=== PATIENT | female | born 1955 | race Caucasian/White ===

== ENCOUNTER → 2016-09-05 | Outpatient (CLI) | payer MEDICARE, OTHER ==
[~2016-09-05] MED LIST: BUDE10.2 IH; CELE-63 PO; CHLO25TA22 PO; DESV50TA PO; DIAZ5TAB3 PO; DOXE50CA3 PO; ESTR1TAB15 PO; LAMO100T PO; LEVO112T55 PO; METO100T2 PO; MONT10TA24 PO; PRD10T; RISP1TAB3 PO; RIVA20TA PO; RT-ALBUINH IH; TIOT4MIS2 INH
--- NOTE | 2016-09-05 17:14 | Diagnostic Imaging Report ---
PROCEDURE: US right lower extremity venous. TECHNIQUE: Multiple real-time grayscale images were obtained over the right lower extremity in various projections. Additional duplex Doppler and color Doppler images were also obtained. INDICATION: Right lower extremity edema and pain. Evaluation of the thigh is limited, however, there is normal venous flow seen within common femoral and proximal superficial femoral vein. While flow is not definitely documented in the superficial femoral vein, there is no evidence of filling defect. There is normal compressibility. The distal superficial femoral vein and popliteal veins demonstrate spontaneous flow. IMPRESSION: No evidence of deep venous thrombosis although flow in the mid superficial femoral vein cannot be confirmed with color Doppler. Otherwise normal compressibility. Dictated by: Dictated on workstation # [id number]
== END ==
LOC: RAD 16:04
PROVIDERS: ATTEND Internal Medicine Hematology & Oncology
DX: I26.99 Other pulmonary embolism without acute cor pulmonale (principal); R60.9 Edema, unspecified

== ENCOUNTER 2016-10-18 12:38 | Outpatient (RCR) | payer MEDICARE, OTHER ==
[2016-07-28 12:16] LABS: BASOPHILS % (AUTO) 0 % (0-10); EOSINOPHILS # (AUTO) 0.3 10^3/uL (0.0-0.3); EOSINOPHILS % (AUTO) 4 % (0-10); LYMPHOCYTES % (AUTO) 28 % (12-44); MEAN CORPUSCULAR HEMOGLOBIN 29 PG (25-34); MEAN CORPUSCULAR HGB CONC 32 G/DL (32-36); MEAN CORPUSCULAR VOLUME 90 FL (80-99); MONOCYTES # (AUTO) 0.6 X 10^3 (0.0-1.0); MONOCYTES % (AUTO) 9 % (0-12); NEUTROPHILS # (AUTO) 4.1 X 10^3 (1.8-7.8); NEUTROPHILS % (AUTO) 58 % (42-75); PLATELET COUNT 258 10^3/uL (130-400); RED BLOOD COUNT 4.58 10^6/uL (4.35-5.85); RED CELL DISTRIBUTION WIDTH 12.8 % (10.0-14.5); WHITE BLOOD COUNT 7.1 10^3/uL (4.3-11.0)
[2016-07-28 12:34] LABS: PEP REPORT SEE PATH REPORT
[2016-07-28 12:57] LABS: ALANINE AMINOTRANSFERASE 14 U/L (0-55); ALBUMIN 3.9 G/DL (3.2-4.5); ANION GAP 11 MMOL/L (5-14); ASPARTATE AMINO TRANSFERASE 26 U/L (5-34); BILIRUBIN,TOTAL 0.4 MG/DL (0.1-1.0); BLOOD UREA NITROGEN 9 MG/DL (7-18); BUN/CREATININE RATIO 12; CALCIUM 9.3 MG/DL (8.5-10.1); CARBON DIOXIDE 29 MMOL/L (21-32); CHLORIDE 99 MMOL/L (98-107); CREATININE SERUM 0.78 MG/DL (0.60-1.30); GFR ESTIMATED > 60; GLUCOSE 119 MG/DL (70-105); LACTATE DEHYDROGENASE 183 U/L (125-220); POTASSIUM 3.4 MMOL/L (3.6-5.0); SODIUM 139 MMOL/L (135-145); TOTAL PROTEIN 7.7 G/DL (6.4-8.2)
[2016-07-29 02:48] LABS: LIGHT CHAIN KAPPA SERUM QUANT 33.83 mg/L (3.30-19.40)
[2016-07-29 06:52] LABS: FERRITIN 42 ng/mL (15-150)
[2016-08-02 08:02] LABS: CLIN PATHOLOGY REPORT FOOTNOTE; SERUM PROTEIN ELEC DETAIL L-16-0015263
[2016-10-04 12:01] LABS: BASOPHILS % (AUTO) 1 % (0-10); EOSINOPHILS # (AUTO) 0.3 10^3/uL (0.0-0.3); EOSINOPHILS % (AUTO) 4 % (0-10); LYMPHOCYTES # (AUTO) 2.4 X 10^3 (1.0-4.0); LYMPHOCYTES % (AUTO) 31 % (12-44); MEAN CORPUSCULAR HEMOGLOBIN 28 PG (25-34); MEAN CORPUSCULAR HGB CONC 32 G/DL (32-36); MEAN CORPUSCULAR VOLUME 87 FL (80-99); MEAN PLATELET VOLUME 10.2 FL (7.4-10.4); MONOCYTES # (AUTO) 0.8 X 10^3 (0.0-1.0); MONOCYTES % (AUTO) 10 % (0-12); NEUTROPHILS # (AUTO) 4.4 X 10^3 (1.8-7.8); NEUTROPHILS % (AUTO) 56 % (42-75); PLATELET COUNT 268 10^3/uL (130-400); RED BLOOD COUNT 4.84 10^6/uL (4.35-5.85); RED CELL DISTRIBUTION WIDTH 14.5 % (10.0-14.5); WHITE BLOOD COUNT 7.9 10^3/uL (4.3-11.0)
[2016-10-04 12:30] LABS: ALANINE AMINOTRANSFERASE 16 U/L (0-55); ANION GAP 6 MMOL/L (5-14); ASPARTATE AMINO TRANSFERASE 20 U/L (5-34); BILIRUBIN,TOTAL 0.5 MG/DL (0.1-1.0); BLOOD UREA NITROGEN 13 MG/DL (7-18); BUN/CREATININE RATIO 15; CALCIUM 9.6 MG/DL (8.5-10.1); CARBON DIOXIDE 32 MMOL/L (21-32); CHLORIDE 99 MMOL/L (98-107); CREATININE SERUM 0.85 MG/DL (0.60-1.30); GFR ESTIMATED > 60; GLUCOSE 85 MG/DL (70-105); SODIUM 137 MMOL/L (135-145); TOTAL PROTEIN 7.5 G/DL (6.4-8.2)
[~2016-10-18 12:38] MED LIST changes: +FERRIC CARBOXYMALTOSE (CANCER) 750 MG in NS (IVPB) CANCER CENTER 250 ML IV SCH
== END 2016-10-26 | disposition home or self-care (01) ==
LOC: ONC 12:38
PROVIDERS: ATTEND Internal Medicine Hematology & Oncology
DX: D50.9 Iron deficiency anemia, unspecified (principal); I26.99 Other pulmonary embolism without acute cor pulmonale; I82.591 Chronic embolism and thrombosis of other specified deep vein of right lower extremity; E03.9 Hypothyroidism, unspecified; J45.909 Unspecified asthma, uncomplicated; I10 Essential (primary) hypertension; G47.33 Obstructive sleep apnea (adult) (pediatric); E66.01 Morbid (severe) obesity due to excess calories; Z68.42 Body mass index [BMI] 45.0-49.9, adult; Z79.01 Long term (current) use of anticoagulants
CPT/HCPCS: 36415; 80053; 82728; 83615; 83883; 84155; 84165; 85025; 96365; 99213

== ENCOUNTER 2017-01-11 12:31 | Outpatient (RCR) | payer MEDICARE, OTHER ==
[2016-11-08 13:21] LABS: BASOPHILS % (AUTO) 0 % (0-10); EOSINOPHILS # (AUTO) 0.2 10^3/uL (0.0-0.3); EOSINOPHILS % (AUTO) 2 % (0-10); LYMPHOCYTES # (AUTO) 2.3 X 10^3 (1.0-4.0); LYMPHOCYTES % (AUTO) 25 % (12-44); MEAN CORPUSCULAR HEMOGLOBIN 29 PG (25-34); MEAN CORPUSCULAR HGB CONC 32 G/DL (32-36); MEAN CORPUSCULAR VOLUME 90 FL (80-99); MEAN PLATELET VOLUME 10.7 FL (7.4-10.4); MONOCYTES # (AUTO) 0.9 X 10^3 (0.0-1.0); MONOCYTES % (AUTO) 9 % (0-12); NEUTROPHILS # (AUTO) 5.8 X 10^3 (1.8-7.8); NEUTROPHILS % (AUTO) 63 % (42-75); PLATELET COUNT 224 10^3/uL (130-400); RED BLOOD COUNT 5.01 10^6/uL (4.35-5.85); RED CELL DISTRIBUTION WIDTH 15.2 % (10.0-14.5); WHITE BLOOD COUNT 9.3 10^3/uL (4.3-11.0)
[2017-01-04 11:23] LABS: BASOPHILS % (AUTO) 0 % (0-10); EOSINOPHILS # (AUTO) 0.3 10^3/uL (0.0-0.3); EOSINOPHILS % (AUTO) 3 % (0-10); LYMPHOCYTES # (AUTO) 2.2 X 10^3 (1.0-4.0); LYMPHOCYTES % (AUTO) 26 % (12-44); MEAN CORPUSCULAR HEMOGLOBIN 30 PG (25-34); MEAN CORPUSCULAR HGB CONC 32 G/DL (32-36); MEAN CORPUSCULAR VOLUME 93 FL (80-99); MEAN PLATELET VOLUME 11.4 FL (7.4-10.4); MONOCYTES # (AUTO) 0.7 X 10^3 (0.0-1.0); MONOCYTES % (AUTO) 8 % (0-12); NEUTROPHILS # (AUTO) 5.3 X 10^3 (1.8-7.8); NEUTROPHILS % (AUTO) 62 % (42-75); PLATELET COUNT 218 10^3/uL (130-400); RED CELL DISTRIBUTION WIDTH 13.4 % (10.0-14.5); WHITE BLOOD COUNT 8.5 10^3/uL (4.3-11.0)
[2017-01-04 11:43] LABS: ALANINE AMINOTRANSFERASE 17 U/L (0-55); ANION GAP 7 MMOL/L (5-14); ASPARTATE AMINO TRANSFERASE 21 U/L (5-34); BILIRUBIN,TOTAL 0.6 MG/DL (0.1-1.0); BLOOD UREA NITROGEN 13 MG/DL (7-18); BUN/CREATININE RATIO 15; CALCIUM 9.7 MG/DL (8.5-10.1); CARBON DIOXIDE 31 MMOL/L (21-32); CHLORIDE 101 MMOL/L (98-107); CREATININE SERUM 0.85 MG/DL (0.60-1.30); GFR ESTIMATED > 60; GLUCOSE 97 MG/DL (70-105); POTASSIUM 4.1 MMOL/L (3.6-5.0); SODIUM 139 MMOL/L (135-145); TOTAL PROTEIN 7.3 G/DL (6.4-8.2)
[~2017-01-11 12:31] MED LIST changes: -FERRIC CARBOXYMALTOSE (CANCER) 750 MG in NS (IVPB) CANCER CENTER 250 ML IV SCH
== END 2017-02-06 | disposition home or self-care (01) ==
LOC: ONC 12:31
PROVIDERS: ATTEND Internal Medicine Hematology & Oncology
DX: D50.9 Iron deficiency anemia, unspecified (principal); I26.99 Other pulmonary embolism without acute cor pulmonale; I82.591 Chronic embolism and thrombosis of other specified deep vein of right lower extremity; E03.9 Hypothyroidism, unspecified; J45.909 Unspecified asthma, uncomplicated; I10 Essential (primary) hypertension; G47.33 Obstructive sleep apnea (adult) (pediatric); E66.01 Morbid (severe) obesity due to excess calories; Z68.42 Body mass index [BMI] 45.0-49.9, adult; Z79.01 Long term (current) use of anticoagulants
CPT/HCPCS: 36415; 80053; 82728; 85025; 99213

== ENCOUNTER → 2017-02-20 | Outpatient (CLI) | payer MEDICARE, OTHER ==
[~2017-02-20] MED LIST changes: +CATHETER FLUSH 10 ML SYR IV PRN; +IOHEXOL 350 MG/ML 150 ML (OMNIPAQUE 350) VIAL IV ONE; +NS 100 ML (IVPB) BAG IV ONE
--- NOTE | 2017-02-20 17:18 | Diagnostic Imaging Report ---
Technique: Grayscale, pulsed and color Doppler imaging of the bilateral lower extremity. INDICATION: Shortness of breath, lower extremity pain. COMPARISON: Right lower extremity Doppler from 09/05/2016. Findings: The visualized aspects of the bilateral common femoral, femoral and popliteal veins are patent without evidence of DVT. The mid right superficial femoral vein was poorly visualized due to patient body habitus. Visualized proximal aspects of the greater saphenous, deep femoral, posterior tibial and peroneal veins are also patent. All of the evaluated deep venous structures demonstrate normal compressibility and waveform augmentation where applicable. Impression: No deep venous thrombosis (DVT) within the visualized structures. The main limitation is a small segment of the right mid superficial femoral vein was unable to be evaluated due to patient body habitus. Dictated by: Dictated on workstation # [id number]
--- NOTE | 2017-02-20 17:46 | Diagnostic Imaging Report ---
PROCEDURE: CT angiography of the chest with contrast. TECHNIQUE: Multiple contiguous axial images were obtained through the chest after uneventful bolus administration of intravenous contrast. Reconstructed CTA MIP acquisitions were also performed. INDICATION: Dyspnea. COMPARISON: Chest radiograph of 07/08/2015. CTA chest of 07/08/2015. FINDINGS: No pulmonary artery filling defects. The previously seen pulmonary artery filling defects have resolved. Mild thoracic aortic calcifications. No thoracic aortic dissection or aneurysm. Calcified granuloma in the right upper lobe. Minimal linear scarring or atelectasis in the right lung base. Lungs are otherwise clear. No endobronchial lesions. No pleural or pericardial effusion. No pneumothorax. No mediastinal, hilar, or axillary lymphadenopathy. Moderate degenerative changes in the thoracic spine. No acute osseous findings. Small esophageal hiatal hernia. Cholecystectomy. The visualized upper abdominal contents are otherwise unremarkable. IMPRESSION: 1. No pulmonary emboli. No thoracic aortic aneurysm or dissection. 2. Minimal linear scarring or atelectasis in the right lung base. Lungs are otherwise clear. Dictated by: Dictated on workstation # [id number]
== END ==
LOC: RAD 15:59
PROVIDERS: ATTEND Nurse Practitioner Family
DX: R06.00 Dyspnea, unspecified (principal); R60.0 Localized edema
CPT/HCPCS: 71275; 93970

== ENCOUNTER → 2017-03-07 | Outpatient (CLI) | payer MEDICARE, OTHER ==
[~2017-03-07] MED LIST changes: -CATHETER FLUSH 10 ML SYR IV PRN; -IOHEXOL 350 MG/ML 150 ML (OMNIPAQUE 350) VIAL IV ONE; -NS 100 ML (IVPB) BAG IV ONE
== END ==
LOC: CARD 09:37
PROVIDERS: ATTEND Internal Medicine Cardiovascular Disease
DX: J45.909 Unspecified asthma, uncomplicated (principal); I82.409 Acute embolism and thrombosis of unspecified deep veins of unspecified lower extremity; R60.9 Edema, unspecified; G47.34 Idiopathic sleep related nonobstructive alveolar hypoventilation; G47.33 Obstructive sleep apnea (adult) (pediatric)
CPT/HCPCS: 93306

== ENCOUNTER → 2017-03-10 | Outpatient (CLI) | payer MEDICARE, OTHER ==
[~2017-03-10] MED LIST changes: +RT-ALBUTEROL SULF 2.5 MG/3 ML PRE-MIX VIAL IH ONE
== END ==
LOC: RT 14:42
PROVIDERS: ATTEND Internal Medicine Critical Care Medicine
DX: G47.33 Obstructive sleep apnea (adult) (pediatric) (principal); E66.01 Morbid (severe) obesity due to excess calories; R60.9 Edema, unspecified; J45.909 Unspecified asthma, uncomplicated
CPT/HCPCS: 94060; 94640; 94726; 94729

== ENCOUNTER 2017-04-12 10:53 | Outpatient (RCR) | payer MEDICARE, OTHER ==
[~2017-04-12 10:53] MED LIST changes: -RT-ALBUTEROL SULF 2.5 MG/3 ML PRE-MIX VIAL IH ONE
[2017-04-12 11:09] LABS: BASOPHILS # (AUTO) 0.1 10^3/uL (0.0-0.1); BASOPHILS % (AUTO) 1 % (0-10); EOSINOPHILS # (AUTO) 0.2 10^3/uL (0.0-0.3); EOSINOPHILS % (AUTO) 2 % (0-10); LYMPHOCYTES # (AUTO) 2.9 X 10^3 (1.0-4.0); LYMPHOCYTES % (AUTO) 33 % (12-44); MEAN CORPUSCULAR HEMOGLOBIN 30 PG (25-34); MEAN CORPUSCULAR HGB CONC 33 G/DL (32-36); MEAN CORPUSCULAR VOLUME 91 FL (80-99); MEAN PLATELET VOLUME 11.4 FL (7.4-10.4); MONOCYTES # (AUTO) 0.7 X 10^3 (0.0-1.0); MONOCYTES % (AUTO) 8 % (0-12); NEUTROPHILS # (AUTO) 5.1 X 10^3 (1.8-7.8); NEUTROPHILS % (AUTO) 57 % (42-75); PLATELET COUNT 268 10^3/uL (130-400); RED BLOOD COUNT 4.85 10^6/uL (4.35-5.85); RED CELL DISTRIBUTION WIDTH 13.2 % (10.0-14.5); WHITE BLOOD COUNT 8.9 10^3/uL (4.3-11.0)
== END 2017-05-27 | disposition home or self-care (01) ==
LOC: ONC 10:53
PROVIDERS: ATTEND Internal Medicine Hematology & Oncology
DX: D50.9 Iron deficiency anemia, unspecified (principal); I26.99 Other pulmonary embolism without acute cor pulmonale; I82.591 Chronic embolism and thrombosis of other specified deep vein of right lower extremity; E03.9 Hypothyroidism, unspecified; J45.909 Unspecified asthma, uncomplicated; I10 Essential (primary) hypertension; G47.33 Obstructive sleep apnea (adult) (pediatric); E66.01 Morbid (severe) obesity due to excess calories; Z68.42 Body mass index [BMI] 45.0-49.9, adult; Z79.01 Long term (current) use of anticoagulants
CPT/HCPCS: 36415; 82565; 82728; 84520; 85025

== ENCOUNTER → 2017-04-24 | Outpatient (CLI) | payer MEDICARE, OTHER ==
[~2017-04-24] VITALS: Ht 157.5 cm; Wt 111.6 kg
[~2017-04-24] MED LIST changes: +CATHETER FLUSH 10 ML SYR IV PRN; +REGADENOSON 0.4 MG/5 ML SYR (LEXISCAN) IV ONE
[2017-04-24 09:38] VITALS: BP 120/72
[2017-04-24 09:40] VITALS: BP 112/87
--- NOTE | 2017-04-25 09:45 | STRESS TEST ---
DATE OF SERVICE: 04/24/2017 PROCEDURE: Lexiscan Myoview Stress Test. Baseline heart rate is 53, baseline blood pressure 139/83, baseline EKG is sinus rhythm with no ischemic changes. IN SUMMARY: The patient received 10.0 mCi of technetium-99 Myoview and the resting images were obtained. Then, the patient received 0.4 mg of Lexiscan followed by 31.8 mCi of technetium-99 Myoview. Throughout the test, there were no EKG changes. The resting and stressed images were reviewed and compared in the short access, horizontal long axis, and vertical long axis views. Review of the images showed good radiotracer uptake with diaphragmatic attenuation, no significant ischemia or infarction. SSS is 3, SDS 3, TID value 1.05. On the gated images, the left ventricle appeared to be normal size with normal contractility. Calculated ejection fraction 58%. CONCLUSION: 1. The patient tolerated Lexiscan well. 2. Good radiotracer uptake with no significant ischemia or infarction on SPECT images. 3. Normal left ventricular size with normal contractility, calculated ejection fraction 58%. Job ID: [id number] DocumentID: [id number] Dictated Date: 04/24/2017 18:40:13 Search Engine Opt[employer] Manager Date: 04/25/2017 06:40:21 Dictated By: ELLI CARBONE MD
== END ==
LOC: CARD 08:04
PROVIDERS: ATTEND Internal Medicine Cardiovascular Disease
DX: J45.909 Unspecified asthma, uncomplicated (principal); I82.409 Acute embolism and thrombosis of unspecified deep veins of unspecified lower extremity; R60.9 Edema, unspecified; G47.34 Idiopathic sleep related nonobstructive alveolar hypoventilation; G47.33 Obstructive sleep apnea (adult) (pediatric)
CPT/HCPCS: 78452; 93017

== ENCOUNTER 2017-07-13 12:34 | Outpatient (RCR) | payer MEDICARE, OTHER ==
[~2017-07-13 12:34] MED LIST changes: -CATHETER FLUSH 10 ML SYR IV PRN; +METO100T12 PO; -METO100T2 PO; -REGADENOSON 0.4 MG/5 ML SYR (LEXISCAN) IV ONE
[2017-07-13 13:00] LABS: BASOPHILS % (AUTO) 0 % (0-10); EOSINOPHILS # (AUTO) 0.4 10^3/uL (0.0-0.3); EOSINOPHILS % (AUTO) 5 % (0-10); HEMATOCRIT 43 % (35-52); HEMOGLOBIN 14.4 G/DL (11.5-16.0); LYMPHOCYTES # (AUTO) 2.2 X 10^3 (1.0-4.0); LYMPHOCYTES % (AUTO) 29 % (12-44); MEAN CORPUSCULAR HEMOGLOBIN 31 PG (25-34); MEAN CORPUSCULAR HGB CONC 33 G/DL (32-36); MEAN CORPUSCULAR VOLUME 93 FL (80-99); MEAN PLATELET VOLUME 11.7 FL (7.4-10.4); MONOCYTES # (AUTO) 0.6 X 10^3 (0.0-1.0); MONOCYTES % (AUTO) 7 % (0-12); NEUTROPHILS # (AUTO) 4.5 X 10^3 (1.8-7.8); NEUTROPHILS % (AUTO) 59 % (42-75); PLATELET COUNT 206 10^3/uL (130-400); RED BLOOD COUNT 4.67 10^6/uL (4.35-5.85); WHITE BLOOD COUNT 7.6 10^3/uL (4.3-11.0)
[2017-07-13 13:17] LABS: ALANINE AMINOTRANSFERASE 16 U/L (0-55); ALBUMIN 3.9 GM/DL (3.2-4.5); ALKALINE PHOSPHATASE 54 U/L (40-136); BILIRUBIN,TOTAL 0.5 MG/DL (0.1-1.0); BUN/CREATININE RATIO 18; CALCIUM 9.3 MG/DL (8.5-10.1); CARBON DIOXIDE 28 MMOL/L (21-32); CHLORIDE 102 MMOL/L (98-107); CREATININE SERUM 0.74 MG/DL (0.60-1.30); GFR ESTIMATED > 60; GLUCOSE 117 MG/DL (70-105); POTASSIUM 3.3 MMOL/L (3.6-5.0); SODIUM 140 MMOL/L (135-145); TOTAL PROTEIN 7.4 GM/DL (6.4-8.2)
== END 2017-10-11 | disposition home or self-care (01) ==
LOC: ONC 12:34
PROVIDERS: ATTEND Internal Medicine Hematology & Oncology
DX: D50.9 Iron deficiency anemia, unspecified (principal); I26.99 Other pulmonary embolism without acute cor pulmonale; I82.591 Chronic embolism and thrombosis of other specified deep vein of right lower extremity; E03.9 Hypothyroidism, unspecified; J45.909 Unspecified asthma, uncomplicated; I10 Essential (primary) hypertension; G47.33 Obstructive sleep apnea (adult) (pediatric); E66.01 Morbid (severe) obesity due to excess calories; Z68.42 Body mass index [BMI] 45.0-49.9, adult; Z79.01 Long term (current) use of anticoagulants
CPT/HCPCS: 36415; 80053; 82728; 85025; 99213

== ENCOUNTER → 2017-12-04 | Outpatient (CLI) | payer MEDICARE, OTHER ==
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
== END ==
LOC: RAD 09:29
PROVIDERS: ATTEND Family Medicine
DX: M48.02 Spinal stenosis, cervical region (principal); M48.04 Spinal stenosis, thoracic region; M51.34 Other intervertebral disc degeneration, thoracic region; M47.812 Spondylosis without myelopathy or radiculopathy, cervical region; M47.814 Spondylosis without myelopathy or radiculopathy, thoracic region; V89.2XXD Person injured in unspecified motor-vehicle accident, traffic, subsequent encounter
CPT/HCPCS: 72141; 72146

== ENCOUNTER → 2017-12-05 | Outpatient (CLI) | payer MEDICARE, OTHER ==
--- NOTE | 2017-12-05 12:47 | Diagnostic Imaging Report ---
PROCEDURE: MRI lumbar spine. TECHNIQUE: Multiplanar, multisequence MRI of the lumbar spine was performed without contrast. INDICATION: Low back pain radiating to right lower extremity. COMPARISON: None. FINDINGS: There are five lumbar type vertebral bodies presumed for the purposes of this report. Normal alignment. Vertebral body heights are preserved. Modic type II degenerative endplate changes at T10-T11. Bone marrow signal is otherwise unremarkable. No abnormal signal in the conus which terminates at T12. Normal morphology of the cauda equina. There are small broad-based disc bulges at L1-L2 and L2-L3. There is no substantial spinal canal or neural foraminal narrowing in the lumbar spine. [id number] facet arthropathy at L4-L5 and L5-S1. There is increased fluid within the facet joints at L5-S1. This contributes to mild bilateral neural foraminal narrowing at L5-S1. No other substantial neural foraminal narrowing in the lumbar spine. The visualized paravertebral soft tissues are unremarkable. IMPRESSION: 1. [id number] degenerative facet arthropathy at L4-L5 and L5-S1. There is increased fluid within the facet joints bilaterally at L5-S1. This may be a local pain generator. 2. Mild scattered spondylotic changes in the lumbar spine result in no substantial neural impingement. No acute osseous findings. Dictated by: Dictated on workstation # [id number]
== END ==
LOC: RAD 10:20
PROVIDERS: ATTEND Family Medicine
DX: M51.36 Other intervertebral disc degeneration, lumbar region (principal); M89.38 Hypertrophy of bone, other site; M46.87 Other specified inflammatory spondylopathies, lumbosacral region
CPT/HCPCS: 72148

== ENCOUNTER 2017-12-11 14:12 | Emergency (ER) | payer MEDICARE ==
[~2017-12-11] VITALS: Ht 157.5 cm; Wt 112.0 kg
[2017-12-11 14:33] LABS: BILIRUBIN,URINE NEGATIVE (NEGATIVE); CLARITY,URINE CLEAR; COLOR,URINE YELLOW; GLUCOSE, URINE (UA) NEGATIVE (NEGATIVE); KETONES,URINE 1+ (NEGATIVE); LEUKOCYTE ESTERASE ,URINE 1+ (NEGATIVE); NITRITE,URINE NEGATIVE (NEGATIVE); PH,URINE 7 (5-9); PROTEIN,URINE 1+ (NEGATIVE); UROBILINOGEN,URINE 4 MG/DL (NORMAL)
--- NOTE | 2017-12-11 14:36 | ED GU-Female ---
General Chief Complaint: Abdominal/GI Problems Stated Complaint: ABD PAIN,SIDE PAIN Nursing Triage Note: ARRIVED VIA AMB TO ROOM 06. COMPLAINS OF SEVERE LEFT FLANK PAIN STARTING AROUND 1245. STATES SHE WAS SEEN AT [facility] YESTERDAY AND HAD A PE RULED OUT. Nursing Sepsis Screen: No Definite Risk Source: patient Exam Limitations: no limitations History of Present Illness Date Seen by Provider: Dec 11, 2017 Time Seen by Provider: 14:36 Initial Comments 62 yo female patient presents to the ED with c/o severe left flank pain beginning at 1245 today. Patient was seen at [facility] last night and worked up for a PE. Patient states she had an MRI of the Cervical and thoracic spine on 12/04/17 and an MRI of the lumbar spine on 12/05/17. She was on her way to her behavioral health appointment today and decided to come to the ED to be evaluated for the left flank pain. Timing/Duration: constant, other (1245 today) Severity/Quality: aching, sharp Location: left flank Radiation: none Activities at Onset: none Prior Genitourinary Problems: similar symptoms Modifying Factors: Worsens With Movement, Worsens With Palpation, Worsens With Urinating Allergies and Home Medications Allergies Coded Allergies: acetaminophen (Verified Allergy, Unknown, 07/08/15) erythromycin base (Verified Allergy, Unknown, 07/08/15) hydrocodone (Verified Allergy, Unknown, 07/08/15) Home Medications Albuterol Sulfate 8.5 Gm Hfa.aer.ad, 2 PUFF IH Q4H PRN for SHORTNESS OF BREATH, (Reported) Albuterol Sulfate 6.7 Gm Hfa.aer.ad, 2 PUFF IH Q4H PRN for SHORTNESS OF BREATH Prescribed by: AMADEO MIXON on 12/11/171943 Amoxicillin 500 Mg Capsule, 500 MG PO TID Prescribed by: AMADEO MIXON on 12/11/171943 Budesonide/Formoterol Fumarate 10.2 Gm Hfa.aer.ad, 2 PUFF IH DAILY, (Reported) Chlorthalidone 25 Mg Tablet, 25 MG PO DAILY, (Reported) Ciprofloxacin HCl 500 Mg Tablet, 500 MG PO BID Prescribed by: AMADEO MIXON on 12/11/171943 Desvenlafaxine Succinate 50 Mg Tab.er.24h, 50 MG PO DAILY, (Reported) Diazepam 5 Mg Tablet, 5 MG PO TID PRN for ANXIETY, (Reported) Doxepin HCl 50 Mg Capsule, 50 MG PO HS PRN for INSOMNIA, (Reported) Lamotrigine 100 Mg Tablet, 100 MG PO DAILY, (Reported) Levothyroxine Sodium 112 Mcg Tablet, 112 MCG PO DAILY, (Reported) Metoprolol Tartrate 100 Mg Tablet, 100 MG PO BID, (Reported) Montelukast Sodium 10 Mg Tablet, 10 MG PO EVERY EVENING, (Reported) Ondansetron 8 Mg Tab.rapdis, 8 MG PO Q6H PRN for NAUSEA/VOMITING-1ST LINE Prescribed by: AMADEO MIXON on 12/11/171943 Phenazopyridine HCl 200 Mg Tablet, 1 TAB PO Q8H PRN for SPASMS Prescribed by: AMADEO MIXON on 12/11/171943 Risperidone 1 Mg Tablet, 1 MG PO DAILY, (Reported) Rivaroxaban 20 Mg Tablet, 20 MG PO DAILY Prescribed by: MADALYN ARECHIGA on 07/13/151044 Tiotropium [place] 4 Gm Mist.inhal, 2 PUFF INH DAILY, (Reported) Tramadol HCl 50 Mg Tablet, 50 MG PO Q6H PRN for pain Prescribed by: AMADEO MIXON on 12/11/171929 Patient Home Medication List Home Medication List Reviewed: Yes Review of Systems Constitutional: No chills, No fever, No malaise EENTM: no symptoms reported Respiratory: no symptoms reported Cardiovascular: no symptoms reported Gastrointestinal: see HPI; No abdominal pain, No constipation, No diarrhea, No hematemesis, No heartburn, No melena; nausea; No vomiting Genitourinary: see HPI; denies discharge; dysuria, frequency, flank pain (left flank pain.), hematuria, pain Musculoskeletal: no symptoms reported, other (chronic neck and back pain. denies worsening symptoms.) Skin: no symptoms reported Psychiatric/Neurological: No Symptoms Reported All Other Systemes Reviewed Negative Unless Noted: Yes (Negative excepted noted.) Past Yezayai-Tpefwq-Gyzjfv Hx Patient Social History Alcohol Use: Denies Use Recreational Drug Use: No Smoking Status: Never a Smoker Recent Foreign Travel: No Contact w/Someone Who Travel: No Recent Infectious Disease Expo: No Recent Hopitalizations: Yes (ER VISIT YESTERDAY. ) Immunizations Up To Date Tetanus Booster (TDap): More than 5yrs PED Vaccines UTD: Yes Date of Pneumonia Vaccine: Jul 08, 2012 Date of Influenza Vaccine: Jun 21, 2015 Past Medical History Surgeries: Yes (DENTAL SURGERY) Respiratory: Yes (COPD, PE) Asthma, Pulmonary Embolism, Sleep Apnea Currently Using BIPAP: No Cardiac: Yes (HYPOKALEMIA) High Cholesterol, Hypertension Neurological: No Reproductive Disorders: No Genitourinary: Yes (h/o hematuria) Gastrointestinal: Yes Irritable Bowel Musculoskeletal: Yes (OSTEOARTHRISTIS) Arthritis, Rheumatoid Arthritis Endocrine: Yes Hypothyroidsim Cancer: No Psychosocial: Yes Bipolar Integumentary: No Blood Disorders: No Adverse Reaction/Blood Tranf: No Family Medical History Reviewed and Corrections made Cardiovascular disease 19 FATHER G8 BROTHER FH: atrial fibrillation 19 MOTHER No Pertinent Family Hx Physical Exam Vital Signs Vital Signs - First Documented 12/11/17 12/11/17 14:15 19:00 Temp 96.7 Pulse 65 Resp 18 B/P (MAP) 138/91 (107) Pulse Ox 96 O2 Delivery Room Air Capillary Refill : Less Than 3 Seconds General Appearance: WD/WN, no apparent distress, obese HEENT: PERRL/EOMI, pharynx normal Neck: supple, normal inspection Cardiovascular: normal peripheral pulses, regular rate, rhythm, no murmur Respiratory: lungs clear, normal breath sounds, no respiratory distress, no accessory muscle use Gastrointestinal: normal bowel sounds, no organomegaly, no pulsatile mass; No distended; guarding (RUQ and left flank guarding.); No rebound; tenderness (RUQ and Left flank tenderness); No hernia, No mass Back: normal inspection, no vertebral tenderness, CVA tenderness (R), CVA tenderness (L) Extremities: normal capillary refill Neurologic/Psychiatric: alert, normal mood/affect, oriented x 3 Skin: normal color, warm/dry Progress/Results/Core Measures Suspected Sepsis Recent Fever Within 48 Hours: No Infection Criteria Present: Suspected New Infection New/Unexplained Altered Menta: No Sepsis Screen: No Definite Risk SIRS Temperature:96.7 Pulse: 65 Respiratory Rate: 18 Laboratory Tests 12/11/17 15:25: White Blood Count 7.1 Blood Pressure 138 /91 Mean: 107 Laboratory Tests 12/11/17 15:25: Creatinine 0.76, Platelet Count 280, Total Bilirubin 0.4 Results/Orders Lab Results Laboratory Tests Test 12/11/17 14:25 12/11/17 15:25 Range/Units Urine Color YELLOW Urine Clarity CLEAR Urine pH 7 5-9 Urine Specific [place] 1.015 L 1.016-1.022 Urine Protein 1+ H NEGATIVE Urine Glucose (UA) NEGATIVE NEGATIVE Urine Ketones 1+ H NEGATIVE Urine Nitrite NEGATIVE NEGATIVE Urine Bilirubin NEGATIVE NEGATIVE Urine Urobilinogen 4 H NORMAL MG/DL Urine Leukocyte Esterase 1+ H NEGATIVE Urine RBC (Auto) NEGATIVE NEGATIVE Urine RBC NONE /HPF Urine WBC 5-10 H /HPF Urine Squamous Epithelial Cells 5-10 /HPF Urine Crystals NONE /LPF Urine Bacteria MODERATE H /HPF Urine Casts NONE /LPF Urine Mucus SMALL H /LPF Urine Culture Indicated YES White Blood Count 7.1 4.3-11.0 10^3/uL Red Blood Count 4.24 L 4.35-5.85 10^6/uL Hemoglobin 12.4 11.5-16.0 G/DL Hematocrit 39 35-52 % Mean Corpuscular Volume 91 80-99 FL Mean Corpuscular Hemoglobin 29 25-34 PG Mean Corpuscular Hemoglobin Concent 32 32-36 G/DL Red Cell Distribution Width 13.3 10.0-14.5 % Platelet Count 280 130-400 10^3/uL Mean Platelet Volume 10.7 H 7.4-10.4 FL Neutrophils (%) (Auto) 53 42-75 % Lymphocytes (%) (Auto) 32 12-44 % Monocytes (%) (Auto) 8 0-12 % Eosinophils (%) (Auto) 6 0-10 % Basophils (%) (Auto) 1 0-10 % Neutrophils # (Auto) 3.7 1.8-7.8 X 10^3 Lymphocytes # (Auto) 2.3 1.0-4.0 X 10^3 Monocytes # (Auto) 0.6 0.0-1.0 X 10^3 Eosinophils # (Auto) 0.4 H 0.0-0.3 10^3/uL Basophils # (Auto) 0.1 0.0-0.1 10^3/uL Sodium Level 141 135-145 MMOL/L Potassium Level 3.7 3.6-5.0 MMOL/L Chloride Level 103 98-107 MMOL/L Carbon Dioxide Level 30 21-32 MMOL/L Anion Gap 8 5-14 MMOL/L Blood Urea Nitrogen 15 7-18 MG/DL Creatinine 0.76 0.60-1.30 MG/DL Estimat Glomerular Filtration Rate > 60 BUN/Creatinine Ratio 20 Glucose Level 93 70-105 MG/DL Calcium Level 9.4 8.5-10.1 MG/DL Total Bilirubin 0.4 0.1-1.0 MG/DL Aspartate Amino Transf (AST/SGOT) 22 5-34 U/L Alanine Aminotransferase (ALT/SGPT) 17 0-55 U/L Alkaline Phosphatase 63 40-136 U/L C-Reactive Protein High Sensitivity 1.53 H 0.00-0.50 MG/DL Total Protein 7.3 6.4-8.2 GM/DL Albumin 3.8 3.2-4.5 GM/DL Lipase 76 8-78 U/L TSH [place] Testing 3.94 0.35-4.94 UIU/ML My Orders Orders - AMADEO MIXON Cbc With Automated Diff (12/11/17 14:53) Comprehensive Metabolic Panel (12/11/17 14:53) Hs C Reactive Protein (12/11/17 14:53) Lipase (12/11/17 14:53) Thyroid Analyzer (12/11/17 14:53) Saline Lock/Iv-Start (12/11/17 14:53) Ondansetron Injection (Zofran Injectio (12/11/17 15:00) Ketorolac Injection (Toradol Injection) (12/11/17 14:53) Ns Iv 1000 Ml (Sodium Chloride 0.9%) (12/11/17 14:53) Ceftriaxone Injection (Rocephin Injectio (12/11/17 15:00) Ct Abd/Pelvis Wo(Kidney Stone) (12/11/17 14:54) Ct Angio Chest W (12/11/17 17:17) Morphine Injection (Morphine Injection (12/11/17 17:24) Iohexol Injection (Omnipaque 350 Mg/Ml 1 (12/11/17 17:30) Ns (Ivpb) (Sodium Chloride 0.9% Ivpb Bag (12/11/17 17:30) Morphine Injection (Morphine Injection (12/11/17 18:56) Medications Given in ED Current Medications Medications Dose Ordered Sig/Abeba Route Start Time Stop Time Status Last Admin Dose Admin Ceftriaxone Sodium 1000 mg/ Sodium Chloride 100 ml @ 200 mls/hr ONCE ONCE IV 12/11/17 15:00 12/11/17 15:29 DC 12/11/17 15:30 200 MLS/HR Iohexol 150 ml ONCE ONCE IV 12/11/17 17:30 12/11/17 17:34 DC 12/11/17 17:51 150 ML Ondansetron HCl 4 mg ONCE ONCE IVP 12/11/17 15:00 12/11/17 15:01 DC 12/11/17 15:30 4 MG Sodium Chloride 100 ml ONCE ONCE IV 12/11/17 17:30 12/11/17 17:34 DC 12/11/17 17:51 100 ML Sodium Chloride 1,000 ml @ 0 mls/hr Q0M ONCE IV 12/11/17 14:53 12/11/17 14:55 DC 12/11/17 15:30 1,000 MLS/HR Vital Signs/I&O 12/11/17 12/11/17 12/11/17 12/11/17 14:15 19:00 19:04 19:46 Temp 96.7 97.2 96.7 97.0 Pulse 65 65 62 Resp 18 18 18 B/P (MAP) 138/91 (107) 111/61 (78) 93/60 (78) Pulse Ox 96 94 98 O2 Delivery Room Air Room Air Capillary Refill : Less Than 3 Seconds Blood Pressure Mean: 107 Diagnostic Imaging Diagonstic Imaging: CT Plain Films/CT/US/NM/MRI: abdomen, pelvis Comments PROCEDURE: CT urinary tract, rule out kidney stone. TECHNIQUE: Multiple contiguous axial images were obtained through the abdomen and pelvis without the use of intravenous contrast. INDICATION: Abdominal pain. COMPARISON: None available. FINDINGS: Evaluation of the abdominal viscera is mildly limited without contrast. Lower chest: Multifocal centrilobular nodules are present in the right lower lobe. No pericardial or pleural effusion. Peritoneum: No free intraperitoneal air or fluid. Liver and biliary system: Diffuse hypoattenuation of the liver is indicative of hepatic steatosis. No focal hepatic lesion by noncontrast imaging. Status post cholecystectomy. No biliary duct dilatation. Spleen and Pancreas: Spleen is normal. Unenhanced pancreas is grossly normal. Adrenals: Normal. tract: No renal or ureteral calculi. No obstructive uropathy. Uterus and ovaries are normal in appearance. GI tract: Small hiatus hernia. The stomach is decompressed without discrete wall thickening. No bowel obstruction. No pericolonic inflammatory changes. Appendix is not visualized and may be surgically absent. If not surgically absent, there are no changes that would indicate acute appendicitis. Vasculature and Lymph nodes: Normal caliber aorta. No abdominal or pelvic lymphadenopathy. Musculoskeletal: No concerning osseous lesion. Fat-containing umbilical hernia shows no features of fat infarction. IMPRESSION: 1. No acute inflammatory or obstructive process in the abdomen or pelvis. 2. Right lower lobe bronchiolitis is most frequently seen with infection or aspiration. 3. No urinary tract calculi. 4. Mild diffuse hepatic steatosis. 5. Small fat-containing umbilical hernia. Dictated by: Dictated on workstation # [id number] Reviewed: Reviewed by Me (radiology report reviewed by me) Diagonstic Imaging: CT Plain Films/CT/US/NM/MRI: chest Comments CT ANGIO CHEST W PROCEDURE: CT angiography of the chest with contrast. TECHNIQUE : Multiple contiguous axial images were obtained through the chest after uneventful bolus administration of intravenous contrast. Reconstructed CTA MIP acquisitions were also performed. INDICATION: Chest pain. COMPARISON: February 20, 2017 FINDINGS: Mildly enlarged left axillary lymph node is present, appearing more prominent than the prior examination. No additional pathologically enlarged lymph nodes within the chest. No aneurysmal dilatation of the thoracic aorta. Mild scattered vascular calcifications. Small hiatal hernia. The heart is mildly enlarged. No significant pericardial effusion. No pleural effusion. New predominantly reticular opacities are identified within the right lower lobe. No pneumothorax. No aortic dissection. Evaluation for pulmonary emboli is limited secondary to contrast bolus timing and respiratory motion. Within the limits of this examination, no large central or segmental pulmonary embolus is identified. Cholecystectomy. Otherwise, the visualized upper abdomen is unremarkable. Scattered osseous degenerative changes without acute osseous abnormality. IMPRESSION: 1. No definite pulmonary embolus is identified. However , evaluation for pulmonary emboli is limited secondary to contrast bolus timing and respiratory motion. 2. New reticular opacities within the right lung, likely related to infiltrate such as pneumonia. 3. Prominent axillary lymph nodes, increasing on the left. This may simply be reactive. Underlying systemic process such as granulomatous disease or even lymphoma not excluded. Additionally, breast cancer cannot be excluded. Recommend correlation with mammography if available. If patient has not had mammography within the past year, mammography would be indicated. 4. Small hiatal hernia. 5. Additional findings as above. Dictated by: Dictated on workstation # [id number] Reviewed: Reviewed by Me (radiology report reviewed by me) Departure Communication (Admissions) patient seen and evaluated. initial labs and CT abd/pelvis obtained. Records from that helped received and reviewed. No record of CT anterior chest obtained at [facility]. patient case discussed with dr. palumbo. dr. palumbo recommends CT angio chest to further evaluate for PE. all laboratory findings, diagnostic study findings and recommendations for CT angio chest discussed with the patient. patient verbalizes understanding and wishes to proceed. 1914 CT angio chest results discussed with dr. palumbo. recommends [facility] to home with f/u in her office for recheck, outpatient mammogram, and further evaluation of the enlarged lymph nodes in the axilla. diagnostic findings and recommendations by dr. palumbo discussed with the patient. patient reports feeling better with pain medications and ivf. patient to call dr. palumbo's office for appointment time. Patient to return immediately to the emergency department for worsened symptoms or any other concerns. Patient case discussed with dr. cornejo, he agrees with the plan of care. Impression Primary Impression: Urinary tract infection Qualified Codes: N30.00 - Acute cystitis without hematuria Additional Impressions: Dehydration Pneumonia Qualified Codes: J18.1 - Lobar pneumonia, unspecified organism Disposition: HOME, SELF-CARE Condition: Improved Departure-Patient Inst. Decision time for Depature: 19:24 Referrals: MULU PALUMBO MD (PCP/Family) Primary Care Physician Patient Instructions: Community-Acquired Pneumonia, Adult (DC), Urinary Tract Infection, Adult (DC) Add. Discharge Instructions: All discharge instructions reviewed with patient and/or family. Voiced understanding. Medications as instructed. Tylenol Extra Strength over-the- counter as directed for pain. Ibuprofen 800 mg by mouth every 8 hours as needed for pain. Boou-ooh-qdbznfu decongestants and antihistamines if needed for symptoms. Drink plenty of fluids. Follow-up with Dr. Palumbo this week for recheck, call for appointment time tomorrow morning. Return to the emergency department for worsened symptoms or any other concerns. Scripts Phenazopyridine HCl (Pyridium) 200 Mg Tablet 1 TAB PO Q8H PRN for SPASMS, #14 TAB 0 Refills Prov: AMADEO MIXON 12/11/17 Ondansetron (Ondansetron Odt) 8 Mg Tab.rapdis 8 MG PO Q6H PRN for NAUSEA/VOMITING-1ST LINE, #10 TAB 0 Refills Prov: AMADEO MIXON 12/11/17 Albuterol Sulfate (Proventil Hfa) 6.7 Gm Hfa.aer.ad 2 PUFF IH Q4H PRN for SHORTNESS OF BREATH, #1 EACH 0 Refills Prov: AMADEO MIXON 12/11/17 Amoxicillin (Amoxicillin) 500 Mg Capsule 500 MG PO TID, #21 CAP 0 Refills Prov: AMADEO MIXON 12/11/17 Ciprofloxacin HCl (Ciprofloxacin HCl) 500 Mg Tablet 500 MG PO BID, #14 TAB 0 Refills Prov: AMADEO MIXON 12/11/17 Tramadol HCl (Tramadol HCl) 50 Mg Tablet 50 MG PO Q6H PRN for pain, #14 TAB 0 Refills Prov: AMADEO MIXON 12/11/17 AMADEO MIXON Dec 11, 2017 14:36
[2017-12-11 14:52] LABS: BACTERIA,URINE MODERATE /HPF
[2017-12-11] MEDS ORDERED: NS IV 1000 ML 1,000 ML IV ONE (14:53)
[2017-12-11] MEDS ORDERED: KETOROLAC 30 MG/ML VIAL IVP STA (14:53)
[2017-12-11] MEDS ORDERED: cefTRIAXone INJECTION 1,000 MG in NS (IVPB) 100 ML IV ONE (15:00)
[2017-12-11] MEDS ORDERED: ONDANSETRON 4 MG/2 ML (SDV) Z0FRAN IVP ONE (15:00)
[2017-12-11 15:34] LABS: BASOPHILS # (AUTO) 0.1 10^3/uL (0.0-0.1); BASOPHILS % (AUTO) 1 % (0-10); EOSINOPHILS # (AUTO) 0.4 10^3/uL (0.0-0.3); EOSINOPHILS % (AUTO) 6 % (0-10); HEMATOCRIT 39 % (35-52); HEMOGLOBIN 12.4 G/DL (11.5-16.0); LYMPHOCYTES # (AUTO) 2.3 X 10^3 (1.0-4.0); LYMPHOCYTES % (AUTO) 32 % (12-44); MEAN CORPUSCULAR HEMOGLOBIN 29 PG (25-34); MEAN CORPUSCULAR HGB CONC 32 G/DL (32-36); MEAN CORPUSCULAR VOLUME 91 FL (80-99); MEAN PLATELET VOLUME 10.7 FL (7.4-10.4); MONOCYTES # (AUTO) 0.6 X 10^3 (0.0-1.0); MONOCYTES % (AUTO) 8 % (0-12); NEUTROPHILS # (AUTO) 3.7 X 10^3 (1.8-7.8); NEUTROPHILS % (AUTO) 53 % (42-75); PLATELET COUNT 280 10^3/uL (130-400); RED BLOOD COUNT 4.24 10^6/uL (4.35-5.85); RED CELL DISTRIBUTION WIDTH 13.3 % (10.0-14.5); WHITE BLOOD COUNT 7.1 10^3/uL (4.3-11.0)
[2017-12-11 15:58] LABS: ALANINE AMINOTRANSFERASE 17 U/L (0-55); ALBUMIN 3.8 GM/DL (3.2-4.5); ALKALINE PHOSPHATASE 63 U/L (40-136); BILIRUBIN,TOTAL 0.4 MG/DL (0.1-1.0); BUN/CREATININE RATIO 20; CALCIUM 9.4 MG/DL (8.5-10.1); CARBON DIOXIDE 30 MMOL/L (21-32); CHLORIDE 103 MMOL/L (98-107); CREATININE SERUM 0.76 MG/DL (0.60-1.30); GFR ESTIMATED > 60; GLUCOSE 93 MG/DL (70-105); LIPASE 76 U/L (8-78); POTASSIUM 3.7 MMOL/L (3.6-5.0); SODIUM 141 MMOL/L (135-145); TOTAL PROTEIN 7.3 GM/DL (6.4-8.2)
--- NOTE | 2017-12-11 16:03 | Diagnostic Imaging Report ---
PROCEDURE: CT urinary tract, rule out kidney stone. TECHNIQUE: Multiple contiguous axial images were obtained through the abdomen and pelvis without the use of intravenous contrast. INDICATION: Abdominal pain. COMPARISON: None available. FINDINGS: Evaluation of the abdominal viscera is mildly limited without contrast. Lower chest: Multifocal centrilobular nodules are present in the right lower lobe. No pericardial or pleural effusion. Peritoneum: No free intraperitoneal air or fluid. Liver and biliary system: Diffuse hypoattenuation of the liver is indicative of hepatic steatosis. No focal hepatic lesion by noncontrast imaging. Status post cholecystectomy. No biliary duct dilatation. Spleen and Pancreas: Spleen is normal. Unenhanced pancreas is grossly normal. Adrenals: Normal. tract: No renal or ureteral calculi. No obstructive uropathy. Uterus and ovaries are normal in appearance. GI tract: Small hiatus hernia. The stomach is decompressed without discrete wall thickening. No bowel obstruction. No pericolonic inflammatory changes. Appendix is not visualized and may be surgically absent. If not surgically absent, there are no changes that would indicate acute appendicitis. Vasculature and Lymph nodes: Normal caliber aorta. No abdominal or pelvic lymphadenopathy. Musculoskeletal: No concerning osseous lesion. Fat-containing umbilical hernia shows no features of fat infarction. IMPRESSION: 1. No acute inflammatory or obstructive process in the abdomen or pelvis. 2. Right lower lobe bronchiolitis is most frequently seen with infection or aspiration. 3. No urinary tract calculi. 4. Mild diffuse hepatic steatosis. 5. Small fat-containing umbilical hernia. Dictated by: Dictated on workstation # [id number]
[2017-12-11 16:18] LABS: TSH (THYROID ANALYZER) 3.94 UIU/ML (0.35-4.94)
[2017-12-11] MEDS ORDERED: morphine INJ 10 MG/ML 1ML (SYR OR VIAL) IVP STA ×2 (17:24→18:56)
[2017-12-11] MEDS ORDERED: IOHEXOL 350 MG/ML 150 ML (OMNIPAQUE 350) VIAL IV ONE (17:30)
[2017-12-11] MEDS ORDERED: NS 100 ML (IVPB) BAG IV ONE (17:30)
--- NOTE | 2017-12-11 18:49 | Diagnostic Imaging Report ---
PROCEDURE: CT angiography of the chest with contrast. TECHNIQUE: Multiple contiguous axial images were obtained through the chest after uneventful bolus administration of intravenous contrast. Reconstructed CTA MIP acquisitions were also performed. INDICATION: Chest pain. COMPARISON: February 20, 2017 FINDINGS: Mildly enlarged left axillary lymph node is present, appearing more prominent than the prior examination. No additional pathologically enlarged lymph nodes within the chest. No aneurysmal dilatation of the thoracic aorta. Mild scattered vascular calcifications. Small hiatal hernia. The heart is mildly enlarged. No significant pericardial effusion. No pleural effusion. New predominantly reticular opacities are identified within the right lower lobe. No pneumothorax. No aortic dissection. Evaluation for pulmonary emboli is limited secondary to contrast bolus timing and respiratory motion. Within the limits of this examination, no large central or segmental pulmonary embolus is identified. Cholecystectomy. Otherwise, the visualized upper abdomen is unremarkable. Scattered osseous degenerative changes without acute osseous abnormality. IMPRESSION: 1. No definite pulmonary embolus is identified. However, evaluation for pulmonary emboli is limited secondary to contrast bolus timing and respiratory motion. 2. New reticular opacities within the right lung, likely related to infiltrate such as pneumonia. 3. Prominent axillary lymph nodes, increasing on the left. This may simply be reactive. Underlying systemic process such as granulomatous disease or even lymphoma not excluded. Additionally, breast cancer cannot be excluded. Recommend correlation with mammography if available. If patient has not had mammography within the past year, mammography would be indicated. 4. Small hiatal hernia. 5. Additional findings as above. Dictated by: Dictated on workstation # [id number]
[2017-12-11 19:00] VITALS: BP 111/61
[2017-12-11] MEDS ORDERED: RT-ALBUINH IH ×2 (19:30→19:44)
[2017-12-11] MEDS ORDERED: TRAM50TA2 PO (19:30)
[2017-12-11] MEDS ORDERED: CIPR500T4 PO ×2 (19:30→19:44)
[2017-12-11] MEDS ORDERED: AMOX500C2 PO ×2 (19:30→19:44)
[2017-12-11] MEDS ORDERED: ONDA8TAB13 PO (19:44)
[2017-12-11] MEDS ORDERED: PHEN-640 PO (19:44)
[2017-12-11 19:46] VITALS: BP 93/60
== END 2017-12-11 19:46 | disposition home or self-care (01) ==
LOC: EDUNIT# 14:12 → ER 14:14
DX: N39.0 Urinary tract infection, site not specified (principal); E86.0 Dehydration; J18.9 Pneumonia, unspecified organism; E03.9 Hypothyroidism, unspecified; F31.9 Bipolar disorder, unspecified; M06.9 Rheumatoid arthritis, unspecified; E78.00 Pure hypercholesterolemia, unspecified; I10 Essential (primary) hypertension; E87.6 Hypokalemia; J44.9 Chronic obstructive pulmonary disease, unspecified; Z86.711 Personal history of pulmonary embolism; Z87.19 Personal history of other diseases of the digestive system; Z98.818 Other dental procedure status; Z88.6 Allergy status to analgesic agent; Z88.1 Allergy status to other antibiotic agents; Z88.5 Allergy status to narcotic agent
CPT/HCPCS: 36415; 71275; 74176; 80053; 81000; 83690; 84443; 85025; 86141; 87088; 96361; 96365; 96375; 96376

== ENCOUNTER → 2017-12-21 | Outpatient (CLI) | payer MEDICARE ==
[~2017-12-21] MED LIST changes: +AMOX500C2 PO; +CIPR500T4 PO; +ONDA8TAB13 PO; +PHEN-640 PO; +TRAM50TA2 PO
[2017-12-21 18:07] LABS: BASOPHILS # (AUTO) 0.1 10^3/uL (0.0-0.1); BASOPHILS % (AUTO) 1 % (0-10); EOSINOPHILS # (AUTO) 0.5 10^3/uL (0.0-0.3); EOSINOPHILS % (AUTO) 6 % (0-10); HEMATOCRIT 39 % (35-52); LYMPHOCYTES # (AUTO) 2.1 X 10^3 (1.0-4.0); LYMPHOCYTES % (AUTO) 27 % (12-44); MEAN CORPUSCULAR HEMOGLOBIN 29 PG (25-34); MEAN CORPUSCULAR HGB CONC 31 G/DL (32-36); MEAN CORPUSCULAR VOLUME 92 FL (80-99); MEAN PLATELET VOLUME 10.8 FL (7.4-10.4); MONOCYTES # (AUTO) 0.5 X 10^3 (0.0-1.0); MONOCYTES % (AUTO) 6 % (0-12); NEUTROPHILS # (AUTO) 4.7 X 10^3 (1.8-7.8); NEUTROPHILS % (AUTO) 60 % (42-75); PLATELET COUNT 271 10^3/uL (130-400); RED BLOOD COUNT 4.17 10^6/uL (4.35-5.85); RED CELL DISTRIBUTION WIDTH 14.1 % (10.0-14.5); WHITE BLOOD COUNT 7.7 10^3/uL (4.3-11.0)
--- NOTE | 2017-12-21 18:20 | Diagnostic Imaging Report ---
EXAMINATION: PA and lateral Chest at 6:32 p.m. INDICATION: Shortness of breath. FINDINGS: The heart size is at the upper limits of normal, but the heart does seem less prominent than noted on the prior exam of 07/08/2015. The lungs are clear. There is no sign of failure, pneumonia, or pleural effusion to indicate an acute abnormality. The mediastinum is not widened. The osseous structures are intact. IMPRESSION: There is no evidence for an acute cardiopulmonary abnormality. Dictated by: Dictated on workstation # [id number]
[2017-12-21 18:34] LABS: ALANINE AMINOTRANSFERASE 26 U/L (0-55); ALKALINE PHOSPHATASE 63 U/L (40-136); BILIRUBIN,TOTAL 0.4 MG/DL (0.1-1.0); BUN/CREATININE RATIO 18; CALCIUM 9.3 MG/DL (8.5-10.1); CARBON DIOXIDE 28 MMOL/L (21-32); CHLORIDE 103 MMOL/L (98-107); GFR ESTIMATED > 60; GLUCOSE 98 MG/DL (70-105); POTASSIUM 3.7 MMOL/L (3.6-5.0); SODIUM 140 MMOL/L (135-145); TOTAL PROTEIN 7.7 GM/DL (6.4-8.2)
[2017-12-21 18:41] LABS: CREATINE KINASE MB 1.1 NG/ML (<6.6); MYOGLOBIN SERUM 56.9 NG/ML (10.0-92.0)
--- NOTE | 2017-12-21 19:02 | Diagnostic Imaging Report ---
PROCEDURE: US right lower extremity venous. TECHNIQUE: Multiple real-time grayscale images were obtained over the right lower extremity in various projections. Additional duplex Doppler and color Doppler images were also obtained. DATE: December 21, 2017. INDICATION: 62-year-old female, right leg swelling. COMPARISON: September 05, 2016. FINDINGS: The right common femoral vein, right superficial femoral vein, right deep femoral vein, and right popliteal vein are all patent. Right posterior tibial vein and peroneal veins are not well seen. IMPRESSION: 1. Patent visualized venous vasculature through the level of the popliteal vein. 2. The right posterior tibial veins and peroneal veins are not well seen and demonstrated as patent. Dictated by: Dictated on workstation # [id number]
== END ==
LOC: RAD 17:45
PROVIDERS: ATTEND Nurse Practitioner Family
DX: J18.9 Pneumonia, unspecified organism (principal); M79.89 Other specified soft tissue disorders; Z86.718 Personal history of other venous thrombosis and embolism
CPT/HCPCS: 36415; 71046; 80053; 82553; 83874; 84484; 85025; 85379; 86141; 86738

== ENCOUNTER → 2017-12-22 | Outpatient (CLI) | payer MEDICARE ==
[~2017-12-22] MED LIST changes: +CATHETER FLUSH 10 ML SYR IV PRN; +IOHEXOL 350 MG/ML 150 ML (OMNIPAQUE 350) VIAL IV ONE; +NS 250 ML (IVPB) BAG IV ONE
--- NOTE | 2017-12-22 13:50 | Diagnostic Imaging Report ---
PROCEDURE: CT angiography of the chest with contrast. TECHNIQUE: Multiple contiguous axial images were obtained through the chest after uneventful bolus administration of intravenous contrast. Reconstructed CTA MIP acquisitions were also performed. INDICATION: Chest pain. FINDINGS: There are no intraluminal pulmonary arterial filling defects. There is no PE. The aorta is patent and nonaneurysmal. No mass or focal consolidation. There is no effusion or pneumothorax. A few subcentimeter subpleural nodular foci in the lung bases stable from previous exams. Upper abdomen shows no acute finding. There is a [id number]-gp-[id number] retrocardiac gastric hernia chronic. IMPRESSION: Negative for PE or acute aortic pathology. No dominant mass or acute infiltrate. Retrocardiac gastric hernia stable. No change from priors. Dictated by: Dictated on workstation # [id number]
== END ==
LOC: RAD 13:06
PROVIDERS: ATTEND Nurse Practitioner Family
DX: K46.9 Unspecified abdominal hernia without obstruction or gangrene (principal); R07.9 Chest pain, unspecified; R79.1 Abnormal coagulation profile
CPT/HCPCS: 71275

== ENCOUNTER → 2018-01-01 | Outpatient (CLI) | payer MEDICARE ==
[~2018-01-01] MED LIST changes: -CATHETER FLUSH 10 ML SYR IV PRN; -IOHEXOL 350 MG/ML 150 ML (OMNIPAQUE 350) VIAL IV ONE; -NS 250 ML (IVPB) BAG IV ONE
--- NOTE | 2018-01-01 14:04 | Diagnostic Imaging Report ---
CLINICAL INDICATION: Patient with elevated liver enzymes. EXAM: Right upper quadrant ultrasound. COMPARISON: CT scan of the abdomen and pelvis without IV or enteric contrast dated 12/11/2017. FINDINGS: There is diffuse hyperechogenicity seen throughout the liver. The liver surface is smooth. The liver measures 16.2 cm in craniocaudal dimension. There is no intrahepatic or extrahepatic ductal dilation. The common bile duct measures 4.6 mm. The gallbladder is surgically absent. The pancreatic tail is partially obscured. Otherwise, the visualized portions of the head and neck are grossly unremarkable. There is no abdominal ascites. The kidney has normal echogenicity, size, and cortical thickness with no hydronephrosis or mass. The right kidney measures 9.1 cm in craniocaudal dimension. IMPRESSION: 1: There is no evidence of acute abdominal process. 2: Diffuse hyperechogenicity seen throughout the liver, which may be related to diffuse fatty infiltration and/or chronic hepatocellular disease. 3: Cholecystectomy. 4: Incomplete visualization of the pancreatic tail. If there is clinical concern for pancreatic abnormality, serology tests may better evaluate. Dictated by: Dictated on workstation # [id number]
== END ==
LOC: RAD 07:38
PROVIDERS: ATTEND Family Medicine
DX: K76.89 Other specified diseases of liver (principal); Z90.49 Acquired absence of other specified parts of digestive tract
CPT/HCPCS: 76705

== ENCOUNTER → 2018-01-03 | Outpatient (CLI) | payer MEDICARE ==
--- NOTE | 2018-01-03 19:22 | Diagnostic Imaging Report ---
EXAMINATION: Bilateral diagnostic mammogram with 3D tomosynthesis. INDICATION: Abnormal CT exam. COMPARISON: This study was compared to the prior exams of 07/22/2013 and 01/30/2012. At this time, there are no current complaints. The current study was also evaluated with a Computer Aided Detection (CAD) system. FINDINGS: The CTA chest exam performed on 12/11/2017 suggests that the axillary lymph nodes did seem more prominent than noted on the prior CT chest exam of 02/20/2017. On this exam, the axillary lymph nodes are not well visualized. Ultrasound is pending for further study. The overall appearance of the breasts has not changed significantly since the prior study. There are scattered fibroglandular densities in both breasts, which could obscure a lesion. There is no primary or secondary sign of malignancy noted. 3D tomographic images fail to show any sign of malignancy. IMPRESSION: 1. There is no evidence of malignancy. 2. The prominent axillary lymph nodes seen on the CTA chest exam are not well visualized on this study. Ultrasound of both axillae is pending for further study. ACR BI-RADS Category 0: Incomplete. (Needs additional imaging evaluation). Result letter will be mailed to the patient. Note: At least 10% of breast cancer is not imaged by mammography. Dictated by: Dictated on workstation # [id number]
--- NOTE | 2018-01-03 20:56 | Diagnostic Imaging Report ---
INDICATION: Axillary adenopathy. EXAMINATION: Bilateral breast ultrasound. FINDINGS: The CTA chest exam performed on 12/11/2017 suggested that the lymph nodes in each axilla did seem more prominent than on the prior exam of 02/20/17. The diagnostic mammogram performed earlier today failed to show any sign of adenopathy involving either axilla. On this exam, there are a number of prominent lymph nodes in each axilla. The largest lymph node on the right measures 2.6 cm in maximum dimension while the largest lymph node on the left is estimated to be 2.0 cm. The larger lymph nodes do appear to be partially replaced by fat. There is no clear abnormality involving the cortices of these lymph nodes to suggest a replacement process such as inflammation/infection or neoplasm. Even so, correlation with the patient's physical exam would be recommended. If there is a palpable mass present, then biopsy should be considered. If further imaging is desired, then PET CT would be recommended. If there is no intervention at this time, and if the PET/CT exam is not performed, then a short-term (three-month) followup bilateral axillary ultrasound exam should be obtained. IMPRESSION: 1. There are prominent lymph nodes in each axilla. However, there is no clear evidence for malignancy or for an inflammatory/infectious process. Recommendations as above. 2. These results were discussed with Dr. Cari Louise. ACR BI-RADS Category 3: Probably benign findings. Result letter will be mailed to the patient. Note: At least 10% of breast cancer is not imaged by mammography. Dictated by: Dictated on workstation # [id number]
== END ==
LOC: RAD 13:04
PROVIDERS: ATTEND Family Medicine
DX: R59.0 Localized enlarged lymph nodes (principal)
CPT/HCPCS: 76642; 77066

== ENCOUNTER 2018-02-27 09:54 | Outpatient (RCR) | payer MEDICARE, OTHER ==
[2018-02-27 10:20] LABS: BASOPHILS % (AUTO) 1 % (0-10); EOSINOPHILS # (AUTO) 0.3 10^3/uL (0.0-0.3); EOSINOPHILS % (AUTO) 4 % (0-10); HEMATOCRIT 40 % (35-52); HEMOGLOBIN 12.6 G/DL (11.5-16.0); LYMPHOCYTES # (AUTO) 2.1 X 10^3 (1.0-4.0); LYMPHOCYTES % (AUTO) 32 % (12-44); MEAN CORPUSCULAR HEMOGLOBIN 28 PG (25-34); MEAN CORPUSCULAR HGB CONC 32 G/DL (32-36); MEAN CORPUSCULAR VOLUME 89 FL (80-99); MEAN PLATELET VOLUME 11.8 FL (7.4-10.4); MONOCYTES # (AUTO) 0.6 X 10^3 (0.0-1.0); MONOCYTES % (AUTO) 8 % (0-12); NEUTROPHILS # (AUTO) 3.6 X 10^3 (1.8-7.8); NEUTROPHILS % (AUTO) 55 % (42-75); PLATELET COUNT 201 10^3/uL (130-400); RED BLOOD COUNT 4.45 10^6/uL (4.35-5.85); RED CELL DISTRIBUTION WIDTH 14.3 % (10.0-14.5); WHITE BLOOD COUNT 6.6 10^3/uL (4.3-11.0)
[2018-03-26 10:08] LABS: BASOPHILS % (AUTO) 1 % (0-10); EOSINOPHILS # (AUTO) 0.3 10^3/uL (0.0-0.3); EOSINOPHILS % (AUTO) 4 % (0-10); HEMATOCRIT 40 % (35-52); HEMOGLOBIN 13.1 G/DL (11.5-16.0); LYMPHOCYTES # (AUTO) 2.4 X 10^3 (1.0-4.0); LYMPHOCYTES % (AUTO) 32 % (12-44); MEAN CORPUSCULAR HEMOGLOBIN 29 PG (25-34); MEAN CORPUSCULAR HGB CONC 33 G/DL (32-36); MEAN CORPUSCULAR VOLUME 89 FL (80-99); MEAN PLATELET VOLUME 11.5 FL (7.4-10.4); MONOCYTES # (AUTO) 0.6 X 10^3 (0.0-1.0); MONOCYTES % (AUTO) 8 % (0-12); NEUTROPHILS # (AUTO) 4.2 X 10^3 (1.8-7.8); NEUTROPHILS % (AUTO) 56 % (42-75); PLATELET COUNT 198 10^3/uL (130-400); RED BLOOD COUNT 4.49 10^6/uL (4.35-5.85); RED CELL DISTRIBUTION WIDTH 13.9 % (10.0-14.5); WHITE BLOOD COUNT 7.5 10^3/uL (4.3-11.0)
== END 2018-03-26 09:51 | disposition home or self-care (01) ==
LOC: ONC 09:54
PROVIDERS: ATTEND Internal Medicine Hematology & Oncology
DX: D50.9 Iron deficiency anemia, unspecified (principal); I26.99 Other pulmonary embolism without acute cor pulmonale; I82.591 Chronic embolism and thrombosis of other specified deep vein of right lower extremity; E03.9 Hypothyroidism, unspecified; J45.909 Unspecified asthma, uncomplicated; I10 Essential (primary) hypertension; G47.33 Obstructive sleep apnea (adult) (pediatric); E66.01 Morbid (severe) obesity due to excess calories; Z68.42 Body mass index [BMI] 45.0-49.9, adult; Z79.01 Long term (current) use of anticoagulants
CPT/HCPCS: 36415; 82728; 85025; 99213

== ENCOUNTER 2018-03-26 09:56 | Outpatient (RCR) | payer MEDICARE, OTHER | END 2018-03-27 | disposition home or self-care (01) | LOC: ONC 09:56 | PROVIDERS: ATTEND Internal Medicine Hematology & Oncology | DX: D50.9 Iron deficiency anemia, unspecified (principal); I26.99 Other pulmonary embolism without acute cor pulmonale; I82.591 Chronic embolism and thrombosis of other specified deep vein of right lower extremity; E03.9 Hypothyroidism, unspecified; J45.909 Unspecified asthma, uncomplicated; I10 Essential (primary) hypertension; G47.33 Obstructive sleep apnea (adult) (pediatric); E66.01 Morbid (severe) obesity due to excess calories; Z68.42 Body mass index [BMI] 45.0-49.9, adult; Z79.01 Long term (current) use of anticoagulants ==

== ENCOUNTER → 2018-05-25 | Outpatient (CLI) | payer MEDICARE | LOC: RT 09:44 | PROVIDERS: ATTEND Nurse Practitioner Family | DX: G47.33 Obstructive sleep apnea (adult) (pediatric) (principal); R09.02 Hypoxemia; J45.909 Unspecified asthma, uncomplicated ==

== ENCOUNTER 2018-07-26 10:26 | Outpatient (RCR) | payer MEDICARE ==
[2018-07-23 11:19] LABS: BASOPHILS # (AUTO) 0.1 10^3/uL (0.0-0.1); BASOPHILS % (AUTO) 1 % (0-10); EOSINOPHILS # (AUTO) 0.4 10^3/uL (0.0-0.3); EOSINOPHILS % (AUTO) 5 % (0-10); HEMATOCRIT 43 % (35-52); HEMOGLOBIN 13.8 G/DL (11.5-16.0); LYMPHOCYTES # (AUTO) 2.4 X 10^3 (1.0-4.0); LYMPHOCYTES % (AUTO) 29 % (12-44); MEAN CORPUSCULAR HEMOGLOBIN 29 PG (25-34); MEAN CORPUSCULAR HGB CONC 32 G/DL (32-36); MEAN CORPUSCULAR VOLUME 91 FL (80-99); MEAN PLATELET VOLUME 11.8 FL (7.4-10.4); MONOCYTES # (AUTO) 0.7 X 10^3 (0.0-1.0); MONOCYTES % (AUTO) 8 % (0-12); NEUTROPHILS # (AUTO) 4.6 X 10^3 (1.8-7.8); NEUTROPHILS % (AUTO) 56 % (42-75); PLATELET COUNT 235 10^3/uL (130-400); RED CELL DISTRIBUTION WIDTH 13.6 % (10.0-14.5); WHITE BLOOD COUNT 8.1 10^3/uL (4.3-11.0)
[2018-07-26 12:37] LABS: ALANINE AMINOTRANSFERASE 19 U/L (0-55); ALBUMIN 4.1 GM/DL (3.2-4.5); ALKALINE PHOSPHATASE 62 U/L (40-136); BUN/CREATININE RATIO 23; CALCIUM 9.8 MG/DL (8.5-10.1); CARBON DIOXIDE 24 MMOL/L (21-32); CHLORIDE 106 MMOL/L (98-107); CREATININE SERUM 0.86 MG/DL (0.60-1.30); GFR ESTIMATED > 60; GLUCOSE 103 MG/DL (70-105); POTASSIUM 4.1 MMOL/L (3.6-5.0); SODIUM 142 MMOL/L (135-145); TOTAL PROTEIN 7.6 GM/DL (6.4-8.2)
[2018-07-26 12:41] LABS: BILIRUBIN,TOTAL 0.5 MG/DL (0.1-1.0)
== END 2018-10-21 | disposition home or self-care (01) ==
LOC: ONC 10:26
PROVIDERS: ATTEND Internal Medicine Hematology & Oncology
DX: D50.9 Iron deficiency anemia, unspecified (principal); I26.99 Other pulmonary embolism without acute cor pulmonale; I82.591 Chronic embolism and thrombosis of other specified deep vein of right lower extremity; E03.9 Hypothyroidism, unspecified; J45.909 Unspecified asthma, uncomplicated; I10 Essential (primary) hypertension; G47.33 Obstructive sleep apnea (adult) (pediatric); E66.01 Morbid (severe) obesity due to excess calories; Z68.42 Body mass index [BMI] 45.0-49.9, adult; Z79.01 Long term (current) use of anticoagulants
CPT/HCPCS: 36415; 80053; 82728; 82784; 83883; 84155; 84165; 85025; 99213

== ENCOUNTER → 2018-09-12 | Outpatient (CLI) | payer MEDICARE ==
--- NOTE | 2018-09-12 18:11 | Diagnostic Imaging Report ---
INDICATION: Cough and wheezing. TIME OF EXAM: 2:59 p.m. COMPARISON: Correlation is made with prior study from 12/21/2017. FINDINGS: The heart size is normal. The pulmonary vascularity is unremarkable. The lungs are clear. No infiltrate, effusion or pneumothorax is detected. IMPRESSION: No acute cardiopulmonary process is detected. Dictated by: Dictated on workstation # [id number]
== END ==
LOC: RAD 14:24
PROVIDERS: ATTEND Nurse Practitioner Family
DX: J45.909 Unspecified asthma, uncomplicated (principal); E66.9 Obesity, unspecified; G47.34 Idiopathic sleep related nonobstructive alveolar hypoventilation
CPT/HCPCS: 71046

== ENCOUNTER → 2018-12-19 | Outpatient (CLI) | payer MEDICARE ==
[~2018-12-19] MED LIST changes: +HOLD METFORMIN - RECEIVED CONTRAST 20 ML VIAL IV SCH; +IOHEXOL 350 MG/ML 100 ML (OMNIPAQUE 350) VIAL IV ONE; -RIVA20TA PO; +RIVA20TA2 PO
[2018-12-19 15:57] LABS: CREATININE SERUM 1.19 MG/DL (0.60-1.30)
--- NOTE | 2018-12-19 17:56 | Diagnostic Imaging Report ---
PROCEDURE: CT angiography of the chest with contrast. TECHNIQUE: Multiple contiguous axial images were obtained through the chest after uneventful bolus administration of intravenous contrast. 2D reconstructed CTA MIP acquisitions were also performed. Auto Exposure Controls were utilized during the CT exam to meet ALARA standards for radiation dose reduction. INDICATION: Shortness of breath with history of pulmonary embolism. COMPARISON: Comparison is made with a chest radiograph from September 12, 2018. Correlation also made with a prior CTA of the chest from December 22, 2017. FINDINGS: There is suboptimal contrast opacification of the pulmonary arteries. There was reportedly a contrast infiltration. There are, however, no findings of a central pulmonary artery embolus to the level of the interlobar arteries. There is limited evaluation of the small segmental and subsegmental branches. The thoracic aorta demonstrates some minimal atherosclerotic disease with no aneurysm or dissection. Heart size appears appropriate. There is no pericardial effusion. There are no pathologically enlarged mediastinal lymph nodes. The lungs demonstrate no focal pulmonary infiltrate or consolidation. There is no effusion. There is no pneumothorax. There is no pulmonary nodule or mass. There are small right greater than left axillary lymph nodes. These are slightly improved on the left compared to the previous CTA and not significantly changed on the right. There are degenerative features present throughout the spine. There are advanced arthritic changes present at the right shoulder. The upper abdomen demonstrates a small hiatal hernia and prior cholecystectomy changes. IMPRESSION: 1. Suboptimal examination for assessment of small pulmonary emboli. There are, however, no filling defects within the central pulmonary arteries to the level of the interlobar arteries. 2. Thoracic aorta unremarkable. 3. Lungs appear clear. 4. No significant change in right axillary lymph nodes compared to prior exam. There has been some slight improvement on the left. There is no mediastinal or hilar adenopathy. 5. No acute upper abdominal abnormality demonstrated. There are prior cholecystectomy changes as well as a hiatal hernia. 6. Degenerative endplate changes throughout the thoracic spine with advanced arthritic changes at the right glenohumeral joint. Dictated by: Dictated on workstation # [id number]
== END ==
LOC: RAD 15:23
DX: K44.9 Diaphragmatic hernia without obstruction or gangrene (principal); M47.814 Spondylosis without myelopathy or radiculopathy, thoracic region; M19.011 Primary osteoarthritis, right shoulder; R06.02 Shortness of breath; Z90.49 Acquired absence of other specified parts of digestive tract; Z86.711 Personal history of pulmonary embolism
CPT/HCPCS: 36415; 71275; 82565; 84520

== ENCOUNTER → 2019-04-17 | Outpatient (CLI) | payer MEDICARE ==
[~2019-04-17] MED LIST changes: -HOLD METFORMIN - RECEIVED CONTRAST 20 ML VIAL IV SCH; -IOHEXOL 350 MG/ML 100 ML (OMNIPAQUE 350) VIAL IV ONE
--- NOTE | 2019-04-17 19:07 | Diagnostic Imaging Report ---
INDICATION: Routine screening. Comparison is made with prior mammograms from 01/03/2018 and 07/22/2013. 2-D and 3-D bilateral screening mammography was performed. The current study was also evaluated with a Computer Aided Detection (CAD) system. 3-D tomosynthesis was also performed and reviewed. FINDINGS: Scattered fibroglandular densities are identified bilaterally. There is a slightly nodular density in the outer right breast mid depth appearing more prominent than prior exams. It is best seen on the CC view. Tiny circumscribed nodule in the upper-outer right breast posterior depth is also noted and may represent a small intraparenchymal lymph node. The left breast is unremarkable. There are benign calcifications present bilaterally. The axillae are unremarkable. IMPRESSION: Right breast density. Additional views including spot compression, rolled CC and mediolateral views are recommended for further evaluation. ACR BI-RADS Category 0: Incomplete. (Needs additional imaging evaluation). Result letter will be mailed to the patient. Note: At least 10% of breast cancer is not imaged by mammography. Dictated by: Dictated on workstation # [id number]
== END ==
LOC: RAD 09:56
PROVIDERS: ATTEND Family Medicine
DX: Z12.31 Encounter for screening mammogram for malignant neoplasm of breast (principal)
CPT/HCPCS: 77067

== ENCOUNTER 2019-04-23 09:23 | Outpatient (RCR) | payer MEDICARE ==
[2019-01-29 11:12] LABS: BASOPHILS # (AUTO) 0.1 10^3/uL (0.0-0.1); BASOPHILS % (AUTO) 1 % (0-10); EOSINOPHILS # (AUTO) 0.2 10^3/uL (0.0-0.3); EOSINOPHILS % (AUTO) 2 % (0-10); HEMATOCRIT 30 % (35-52); HEMOGLOBIN 8.4 G/DL (11.5-16.0); LYMPHOCYTES # (AUTO) 2.2 X 10^3 (1.0-4.0); LYMPHOCYTES % (AUTO) 23 % (12-44); MEAN CORPUSCULAR HEMOGLOBIN 22 PG (25-34); MEAN CORPUSCULAR HGB CONC 28 G/DL (32-36); MEAN CORPUSCULAR VOLUME 76 FL (80-99); MEAN PLATELET VOLUME 10.8 FL (7.4-10.4); MONOCYTES # (AUTO) 0.6 X 10^3 (0.0-1.0); MONOCYTES % (AUTO) 6 % (0-12); NEUTROPHILS # (AUTO) 6.4 X 10^3 (1.8-7.8); NEUTROPHILS % (AUTO) 68 % (42-75); PLATELET COUNT 436 10^3/uL (130-400); RED CELL DISTRIBUTION WIDTH 24.1 % (10.0-14.5); WHITE BLOOD COUNT 9.5 10^3/uL (4.3-11.0)
[2019-01-29 11:33] LABS: ALANINE AMINOTRANSFERASE 11 U/L (0-55); ALBUMIN 3.6 GM/DL (3.2-4.5); ALKALINE PHOSPHATASE 56 U/L (40-136); BILIRUBIN,TOTAL 0.6 MG/DL (0.1-1.0); BUN/CREATININE RATIO 15; CALCIUM 9.7 MG/DL (8.5-10.1); CARBON DIOXIDE 29 MMOL/L (21-32); CHLORIDE 101 MMOL/L (98-107); CREATININE SERUM 0.84 MG/DL (0.60-1.30); GFR ESTIMATED > 60; GLUCOSE 130 MG/DL (70-105); POTASSIUM 3.7 MMOL/L (3.6-5.0); SODIUM 140 MMOL/L (135-145); TOTAL PROTEIN 7.2 GM/DL (6.4-8.2)
[2019-02-07 13:19] LABS: BASOPHILS % (AUTO) 0 % (0-10); EOSINOPHILS # (AUTO) 0.4 10^3/uL (0.0-0.3); EOSINOPHILS % (AUTO) 5 % (0-10); HEMATOCRIT 30 % (35-52); HEMOGLOBIN 8.1 G/DL (11.5-16.0); LYMPHOCYTES # (AUTO) 1.8 X 10^3 (1.0-4.0); LYMPHOCYTES % (AUTO) 22 % (12-44); MEAN CORPUSCULAR HEMOGLOBIN 23 PG (25-34); MEAN CORPUSCULAR HGB CONC 27 G/DL (32-36); MEAN CORPUSCULAR VOLUME 83 FL (80-99); MEAN PLATELET VOLUME 11.1 FL (7.4-10.4); MONOCYTES # (AUTO) 0.7 X 10^3 (0.0-1.0); MONOCYTES % (AUTO) 8 % (0-12); NEUTROPHILS # (AUTO) 5.3 X 10^3 (1.8-7.8); NEUTROPHILS % (AUTO) 65 % (42-75); PLATELET COUNT 317 10^3/uL (130-400); RED CELL DISTRIBUTION WIDTH 29.4 % (10.0-14.5); WHITE BLOOD COUNT 8.2 10^3/uL (4.3-11.0)
[2019-03-01 11:42] LABS: BASOPHILS % (AUTO) 1 % (0-10); EOSINOPHILS # (AUTO) 0.3 10^3/uL (0.0-0.3); EOSINOPHILS % (AUTO) 5 % (0-10); HEMATOCRIT 36 % (35-52); LYMPHOCYTES # (AUTO) 2.1 X 10^3 (1.0-4.0); LYMPHOCYTES % (AUTO) 35 % (12-44); MEAN CORPUSCULAR HEMOGLOBIN 25 PG (25-34); MEAN CORPUSCULAR HGB CONC 28 G/DL (32-36); MEAN CORPUSCULAR VOLUME 89 FL (80-99); MEAN PLATELET VOLUME 11.4 FL (7.4-10.4); MONOCYTES # (AUTO) 0.6 X 10^3 (0.0-1.0); MONOCYTES % (AUTO) 9 % (0-12); NEUTROPHILS # (AUTO) 3.1 X 10^3 (1.8-7.8); NEUTROPHILS % (AUTO) 51 % (42-75); PLATELET COUNT 283 10^3/uL (130-400); RED CELL DISTRIBUTION WIDTH 19.3 % (10.0-14.5)
[2019-04-03 09:52] LABS: BASOPHILS % (AUTO) 0 % (0-10); EOSINOPHILS # (AUTO) 0.4 10^3/uL (0.0-0.3); EOSINOPHILS % (AUTO) 5 % (0-10); HEMATOCRIT 25 % (35-52); HEMOGLOBIN 7.1 G/DL (11.5-16.0); LYMPHOCYTES # (AUTO) 1.5 X 10^3 (1.0-4.0); LYMPHOCYTES % (AUTO) 19 % (12-44); MEAN CORPUSCULAR HEMOGLOBIN 22 PG (25-34); MEAN CORPUSCULAR HGB CONC 28 G/DL (32-36); MEAN CORPUSCULAR VOLUME 78 FL (80-99); MEAN PLATELET VOLUME 11.2 FL (7.4-10.4); MONOCYTES # (AUTO) 0.6 X 10^3 (0.0-1.0); MONOCYTES % (AUTO) 8 % (0-12); NEUTROPHILS # (AUTO) 5.5 X 10^3 (1.8-7.8); NEUTROPHILS % (AUTO) 68 % (42-75); PLATELET COUNT 322 10^3/uL (130-400); RED CELL DISTRIBUTION WIDTH 17.8 % (10.0-14.5)
[~2019-04-23 09:23] MED LIST changes: +FERRIC CARBOXYMALTOSE (CANCER) 750 MG in NS (IVPB) CANCER CENTER 250 ML IV SCH; +NS IV 500 ML (CANCER CENTER) 500 ML ONE
[2019-04-23 09:42] LABS: BASOPHILS % (AUTO) 1 % (0-10); EOSINOPHILS # (AUTO) 0.4 10^3/uL (0.0-0.3); EOSINOPHILS % (AUTO) 4 % (0-10); HEMATOCRIT 36 % (35-52); HEMOGLOBIN 10.2 G/DL (11.5-16.0); LYMPHOCYTES # (AUTO) 1.5 X 10^3 (1.0-4.0); LYMPHOCYTES % (AUTO) 18 % (12-44); MEAN CORPUSCULAR HEMOGLOBIN 25 PG (25-34); MEAN CORPUSCULAR HGB CONC 28 G/DL (32-36); MEAN CORPUSCULAR VOLUME 90 FL (80-99); MEAN PLATELET VOLUME 11.3 FL (7.4-10.4); MONOCYTES # (AUTO) 0.6 X 10^3 (0.0-1.0); MONOCYTES % (AUTO) 7 % (0-12); NEUTROPHILS # (AUTO) 5.8 X 10^3 (1.8-7.8); NEUTROPHILS % (AUTO) 70 % (42-75); PLATELET COUNT 354 10^3/uL (130-400); RED CELL DISTRIBUTION WIDTH 26.1 % (10.0-14.5); WHITE BLOOD COUNT 8.3 10^3/uL (4.3-11.0)
[2019-04-23 10:02] LABS: ALANINE AMINOTRANSFERASE 10 U/L (0-55); ALBUMIN 3.9 GM/DL (3.2-4.5); ALKALINE PHOSPHATASE 72 U/L (40-136); BILIRUBIN,TOTAL 0.4 MG/DL (0.1-1.0); BUN/CREATININE RATIO 15; CALCIUM 9.3 MG/DL (8.5-10.1); CARBON DIOXIDE 23 MMOL/L (21-32); CHLORIDE 100 MMOL/L (98-107); GFR ESTIMATED > 60; GLUCOSE 183 MG/DL (70-105); POTASSIUM 3.3 MMOL/L (3.6-5.0); SODIUM 139 MMOL/L (135-145); TOTAL PROTEIN 7.9 GM/DL (6.4-8.2)
== END 2019-04-29 | disposition home or self-care (01) ==
LOC: ONC 09:23
PROVIDERS: ATTEND Internal Medicine Hematology & Oncology
DX: D50.9 Iron deficiency anemia, unspecified (principal); I26.99 Other pulmonary embolism without acute cor pulmonale; I82.591 Chronic embolism and thrombosis of other specified deep vein of right lower extremity; E03.9 Hypothyroidism, unspecified; J45.909 Unspecified asthma, uncomplicated; I10 Essential (primary) hypertension; G47.33 Obstructive sleep apnea (adult) (pediatric); E66.01 Morbid (severe) obesity due to excess calories; Z68.42 Body mass index [BMI] 45.0-49.9, adult; Z79.01 Long term (current) use of anticoagulants
CPT/HCPCS: 36415; 36430; 80053; 82728; 85025; 86850; 86900; 86901; 86920; 96365

== ENCOUNTER → 2019-04-25 | Outpatient (CLI) | payer MEDICARE ==
[~2019-04-25] MED LIST changes: -FERRIC CARBOXYMALTOSE (CANCER) 750 MG in NS (IVPB) CANCER CENTER 250 ML IV SCH; -NS IV 500 ML (CANCER CENTER) 500 ML ONE
--- NOTE | 2019-04-25 20:18 | Diagnostic Imaging Report ---
EXAMINATION: Limited ultrasound right breast. INDICATION: Abnormal mammogram. FINDINGS: The diagnostic mammogram performed earlier today noted a small benign-appearing nodular density in the far lateral aspect of the right breast. Ultrasound examination of this area reveals that there is a well-circumscribed 1.4 x 0.8 x 1.0 cm avascular hypoechoic area with a hyperechoic center in this region. This has the appearance of a lymph node although it does not clearly appear to be the same lymph node as seen in the right axilla on the prior exam of 04/19/2018. I do suspect that this is a benign process. Even so, it may prove worthwhile to have a short-term (six-month) follow-up mammogram and ultrasound exam of the right breast for continued evaluation. IMPRESSION: The nodular density in the lateral aspect of the right breast seen on the mammogram is most likely a benign process. Recommendations as above. ACR BI-RADS Category 3: Probably benign findings. Dictated by: Dictated on workstation # [id number]
--- NOTE | 2019-04-26 08:05 | Diagnostic Imaging Report ---
Unilateral diagnostic right mammogram. Indication: Abnormal screening mammogram. Screening mammogram performed on 04/17/2019 suggest a slightly nodular density in the lateral aspect of the right breast. This finding had been present on the prior exam of 07/22/2013 but did seem somewhat more prominent. The compression views of this area shows it has a generally benign appearance although its margins are partially obscured by fibroglandular tissue. I would recommend ultrasound be performed to better characterize this finding. Impression: Ultrasound would be recommended for further evaluation of the nodular density in the lateral aspect of the right breast. ACR BI-RADS Category 0: Incomplete. (Needs additional imaging evaluation). Result letter will be mailed to the patient. Note: At least 10% of breast cancer is not imaged by mammography. Dictated by: Dictated on workstation # [id number]
== END ==
LOC: RAD 08:25
PROVIDERS: ATTEND Obstetrics & Gynecology
DX: R92.2 Inconclusive mammogram (principal)

== ENCOUNTER 2019-08-07 11:40 | Outpatient (RCR) | payer MEDICARE ==
[2019-05-13 15:35] LABS: BASOPHILS % (AUTO) 0 % (0-10); EOSINOPHILS # (AUTO) 0.4 10^3/uL (0.0-0.3); EOSINOPHILS % (AUTO) 5 % (0-10); HEMATOCRIT 34 % (35-52); HEMOGLOBIN 9.9 G/DL (11.5-16.0); LYMPHOCYTES # (AUTO) 1.5 X 10^3 (1.0-4.0); LYMPHOCYTES % (AUTO) 21 % (12-44); MEAN CORPUSCULAR HEMOGLOBIN 26 PG (25-34); MEAN CORPUSCULAR HGB CONC 29 G/DL (32-36); MEAN CORPUSCULAR VOLUME 88 FL (80-99); MEAN PLATELET VOLUME 11.3 FL (7.4-10.4); MONOCYTES # (AUTO) 0.4 X 10^3 (0.0-1.0); MONOCYTES % (AUTO) 6 % (0-12); NEUTROPHILS # (AUTO) 4.6 X 10^3 (1.8-7.8); NEUTROPHILS % (AUTO) 67 % (42-75); PLATELET COUNT 312 10^3/uL (130-400); RED CELL DISTRIBUTION WIDTH 18.6 % (10.0-14.5); WHITE BLOOD COUNT 6.9 10^3/uL (4.3-11.0)
[2019-05-13 15:53] LABS: RETICULOCYTE % 3.32 % (0.50-2.40)
[2019-06-28 13:20] LABS: BASOPHILS % (AUTO) 1 % (0-10); EOSINOPHILS # (AUTO) 0.3 10^3/uL (0.0-0.3); EOSINOPHILS % (AUTO) 5 % (0-10); HEMATOCRIT 41 % (35-52); HEMOGLOBIN 12.4 G/DL (11.5-16.0); LYMPHOCYTES # (AUTO) 1.6 X 10^3 (1.0-4.0); LYMPHOCYTES % (AUTO) 24 % (12-44); MEAN CORPUSCULAR HEMOGLOBIN 25 PG (25-34); MEAN CORPUSCULAR HGB CONC 30 G/DL (32-36); MEAN CORPUSCULAR VOLUME 84 FL (80-99); MEAN PLATELET VOLUME 10.8 FL (7.4-10.4); MONOCYTES # (AUTO) 0.6 X 10^3 (0.0-1.0); MONOCYTES % (AUTO) 9 % (0-12); NEUTROPHILS % (AUTO) 61 % (42-75); PLATELET COUNT 343 10^3/uL (130-400); RED CELL DISTRIBUTION WIDTH 22.5 % (10.0-14.5); WHITE BLOOD COUNT 6.6 10^3/uL (4.3-11.0)
[2019-07-15 15:07] LABS: BASOPHILS % (AUTO) 1 % (0-10); EOSINOPHILS # (AUTO) 0.3 10^3/uL (0.0-0.3); EOSINOPHILS % (AUTO) 3 % (0-10); HEMATOCRIT 45 % (35-52); HEMOGLOBIN 13.7 G/DL (11.5-16.0); LYMPHOCYTES # (AUTO) 2.3 X 10^3 (1.0-4.0); LYMPHOCYTES % (AUTO) 26 % (12-44); MEAN CORPUSCULAR HEMOGLOBIN 26 PG (25-34); MEAN CORPUSCULAR HGB CONC 30 G/DL (32-36); MEAN CORPUSCULAR VOLUME 85 FL (80-99); MEAN PLATELET VOLUME 11.6 FL (7.4-10.4); MONOCYTES # (AUTO) 0.6 X 10^3 (0.0-1.0); MONOCYTES % (AUTO) 7 % (0-12); NEUTROPHILS # (AUTO) 5.6 X 10^3 (1.8-7.8); NEUTROPHILS % (AUTO) 64 % (42-75); PLATELET COUNT 203 10^3/uL (130-400); RED CELL DISTRIBUTION WIDTH 21.5 % (10.0-14.5); WHITE BLOOD COUNT 8.8 10^3/uL (4.3-11.0)
[2019-07-15 15:21] LABS: ALANINE AMINOTRANSFERASE 25 U/L (0-55); ALBUMIN 4.3 GM/DL (3.2-4.5); ALKALINE PHOSPHATASE 69 U/L (40-136); BILIRUBIN,TOTAL 0.7 MG/DL (0.1-1.0); BUN/CREATININE RATIO 14; CALCIUM 9.8 MG/DL (8.5-10.1); CARBON DIOXIDE 28 MMOL/L (21-32); CHLORIDE 102 MMOL/L (98-107); CREATININE SERUM 0.85 MG/DL (0.60-1.30); GFR ESTIMATED > 60; GLUCOSE 104 MG/DL (70-105); POTASSIUM 3.6 MMOL/L (3.6-5.0); SODIUM 140 MMOL/L (135-145); TOTAL PROTEIN 8.3 GM/DL (6.4-8.2)
[~2019-08-07 11:40] MED LIST changes: +ACET-2267 PO; +ALBU18HF2 INH; +BACL10TA PO; +CARI3CAP PO; +CLON0.5T13 PO; +DESV25TA2 PO; +DESV50TA18 PO; +DOXE25CA46 PO; +FERRIC CARBOXYMALTOSE (CANCER) 750 MG in NS (IVPB) CANCER CENTER 250 ML IV SCH; +FESO4TAB PO; +FLUT1AER INH; +POTA20TA15 PO; +PRED10TA22 PO; +ROSU10TA28 PO; +UMEC62.5 INH; +ZOLP10TA5 PO
[2019-08-07 11:55] LABS: BASOPHILS % (AUTO) 0 % (0-10); EOSINOPHILS # (AUTO) 0.2 10^3/uL (0.0-0.3); EOSINOPHILS % (AUTO) 3 % (0-10); HEMATOCRIT 45 % (35-52); HEMOGLOBIN 14.7 G/DL (11.5-16.0); LYMPHOCYTES # (AUTO) 2.1 X 10^3 (1.0-4.0); LYMPHOCYTES % (AUTO) 27 % (12-44); MEAN CORPUSCULAR HEMOGLOBIN 28 PG (25-34); MEAN CORPUSCULAR HGB CONC 33 G/DL (32-36); MEAN CORPUSCULAR VOLUME 84 FL (80-99); MEAN PLATELET VOLUME 11.1 FL (7.4-10.4); MONOCYTES # (AUTO) 0.6 X 10^3 (0.0-1.0); MONOCYTES % (AUTO) 8 % (0-12); NEUTROPHILS # (AUTO) 4.8 X 10^3 (1.8-7.8); NEUTROPHILS % (AUTO) 62 % (42-75); PLATELET COUNT 235 10^3/uL (130-400); RED CELL DISTRIBUTION WIDTH 19.9 % (10.0-14.5); WHITE BLOOD COUNT 7.8 10^3/uL (4.3-11.0)
== END 2019-08-11 | disposition home or self-care (01) ==
LOC: ONC 11:40
PROVIDERS: ATTEND Internal Medicine Hematology & Oncology
DX: D50.9 Iron deficiency anemia, unspecified (principal); I26.99 Other pulmonary embolism without acute cor pulmonale; I82.591 Chronic embolism and thrombosis of other specified deep vein of right lower extremity; E03.9 Hypothyroidism, unspecified; J45.909 Unspecified asthma, uncomplicated; I10 Essential (primary) hypertension; G47.33 Obstructive sleep apnea (adult) (pediatric); E66.01 Morbid (severe) obesity due to excess calories; Z68.42 Body mass index [BMI] 45.0-49.9, adult; Z79.01 Long term (current) use of anticoagulants
CPT/HCPCS: 36415; 80053; 82728; 85025; 85045; 96365; 99213

== ENCOUNTER → 2019-11-08 | Outpatient (CLI) | payer MEDICARE ==
[~2019-11-08] MED LIST changes: -CLON0.5T13 PO; +CLON0.5T4 PO; -DIAZ5TAB3 PO; +DIAZ5TAB49 PO; -FERRIC CARBOXYMALTOSE (CANCER) 750 MG in NS (IVPB) CANCER CENTER 250 ML IV SCH; -LAMO100T PO; +LAMO100T5 PO; -MONT10TA24 PO; +MONT10TA26 PO; -TRAM50TA2 PO; +TRM50T PO
--- NOTE | 2019-11-08 14:46 | Diagnostic Imaging Report ---
INDICATION: 6 month followup right breast nodule. COMPARISON: 04/17/2019 and 01/03/2018. TECHNIQUE: Unilateral right 2D and 3D diagnostic mammography was performed with CAD. FINDINGS: Scattered fibroglandular densities are identified. The nodular density in the outer right breast mid depth appears stable. No new mass is detected. No malignant appearing microcalcifications are seen. There are benign calcifications. The right axilla is unremarkable. IMPRESSION: Stable right mammogram. Sonographic followup of the previously noted right breast nodule in the outer aspect of the right breast is recommended and will be performed today. ACR BI-RADS Category 0: Incomplete. (Needs additional imaging evaluation). Result letter will be mailed to the patient. Note: At least 10% of breast cancer is not imaged by mammography. Dictated by: Dictated on workstation # [id number]
--- NOTE | 2019-11-08 15:00 | Diagnostic Imaging Report ---
INDICATION: 6 month followup right breast nodule. COMPARISON: Correlation is made with the diagnostic mammogram from earlier this same day as well as the right breast ultrasound from 04/25/2019. TECHNIQUE: Sonographic interrogation of the 9 o'clock location 8 cm from the nipple was performed. FINDINGS: The previously noted intraparenchymal lymph node is stable at 13 mm x 7 mm x 8 mm. No new mass is detected. IMPRESSION: Stable intraparenchymal lymph node at the 9 o'clock location of the right breast 8 cm from the nipple. The patient may return to routine annual screening mammography. ACR BI-RADS Category 2: Benign findings. Dictated by: Dictated on workstation # [id number]
== END ==
LOC: RAD 01:58
PROVIDERS: ATTEND Family Medicine
DX: N63.10 Unspecified lump in the right breast, unspecified quadrant (principal); R92.8 Other abnormal and inconclusive findings on diagnostic imaging of breast

== ENCOUNTER 2019-12-16 11:35 | Outpatient (RCR) | payer MEDICARE ==
[2019-09-27 10:18] LABS: BASOPHILS % (AUTO) 0 % (0-10); EOSINOPHILS # (AUTO) 0.2 10^3/uL (0.0-0.3); EOSINOPHILS % (AUTO) 3 % (0-10); HEMATOCRIT 44 % (35-52); HEMOGLOBIN 14.5 G/DL (11.5-16.0); LYMPHOCYTES # (AUTO) 2.2 X 10^3 (1.0-4.0); LYMPHOCYTES % (AUTO) 29 % (12-44); MEAN CORPUSCULAR HEMOGLOBIN 30 PG (25-34); MEAN CORPUSCULAR HGB CONC 33 G/DL (32-36); MEAN CORPUSCULAR VOLUME 90 FL (80-99); MEAN PLATELET VOLUME 11.4 FL (7.4-10.4); MONOCYTES # (AUTO) 0.6 X 10^3 (0.0-1.0); MONOCYTES % (AUTO) 8 % (0-12); NEUTROPHILS # (AUTO) 4.4 X 10^3 (1.8-7.8); NEUTROPHILS % (AUTO) 59 % (42-75); PLATELET COUNT 230 10^3/uL (130-400); RED CELL DISTRIBUTION WIDTH 14.3 % (10.0-14.5); WHITE BLOOD COUNT 7.4 10^3/uL (4.3-11.0)
[2019-09-27 10:42] LABS: ALANINE AMINOTRANSFERASE 18 U/L (0-55); ALBUMIN 4.1 GM/DL (3.2-4.5); ALKALINE PHOSPHATASE 63 U/L (40-136); BILIRUBIN,TOTAL 0.6 MG/DL (0.1-1.0); BUN/CREATININE RATIO 13; CALCIUM 9.7 MG/DL (8.5-10.1); CARBON DIOXIDE 26 MMOL/L (21-32); CHLORIDE 103 MMOL/L (98-107); CREATININE SERUM 0.82 MG/DL (0.60-1.30); GFR ESTIMATED > 60; GLUCOSE 102 MG/DL (70-105); POTASSIUM 3.8 MMOL/L (3.6-5.0); SODIUM 139 MMOL/L (135-145); TOTAL PROTEIN 7.9 GM/DL (6.4-8.2)
[2019-10-31 13:34] LABS: BASOPHILS % (AUTO) 1 % (0-10); EOSINOPHILS # (AUTO) 0.3 10^3/uL (0.0-0.3); EOSINOPHILS % (AUTO) 4 % (0-10); HEMATOCRIT 46 % (35-52); HEMOGLOBIN 14.8 G/DL (11.5-16.0); LYMPHOCYTES # (AUTO) 2.3 X 10^3 (1.0-4.0); LYMPHOCYTES % (AUTO) 27 % (12-44); MEAN CORPUSCULAR HEMOGLOBIN 29 PG (25-34); MEAN CORPUSCULAR HGB CONC 32 G/DL (32-36); MEAN CORPUSCULAR VOLUME 90 FL (80-99); MEAN PLATELET VOLUME 11.1 FL (7.4-10.4); MONOCYTES # (AUTO) 0.6 X 10^3 (0.0-1.0); MONOCYTES % (AUTO) 8 % (0-12); NEUTROPHILS % (AUTO) 61 % (42-75); PLATELET COUNT 295 10^3/uL (130-400); RED CELL DISTRIBUTION WIDTH 13.5 % (10.0-14.5); WHITE BLOOD COUNT 8.3 10^3/uL (4.3-11.0)
[2019-10-31 13:56] LABS: ALANINE AMINOTRANSFERASE 16 U/L (0-55); ALKALINE PHOSPHATASE 62 U/L (40-136); BILIRUBIN,TOTAL 0.9 MG/DL (0.1-1.0); BUN/CREATININE RATIO 11; CALCIUM 9.8 MG/DL (8.5-10.1); CARBON DIOXIDE 24 MMOL/L (21-32); CHLORIDE 103 MMOL/L (98-107); CREATININE SERUM 0.88 MG/DL (0.60-1.30); GFR ESTIMATED > 60; GLUCOSE 162 MG/DL (70-105); POTASSIUM 3.6 MMOL/L (3.6-5.0); SODIUM 139 MMOL/L (135-145); TOTAL PROTEIN 7.4 GM/DL (6.4-8.2)
[2019-12-16 11:47] LABS: BASOPHILS % (AUTO) 1 % (0-10); EOSINOPHILS # (AUTO) 0.3 10^3/uL (0.0-0.3); EOSINOPHILS % (AUTO) 4 % (0-10); HEMATOCRIT 46 % (35-52); HEMOGLOBIN 14.9 G/DL (11.5-16.0); LYMPHOCYTES % (AUTO) 28 % (12-44); MEAN CORPUSCULAR HEMOGLOBIN 29 PG (25-34); MEAN CORPUSCULAR HGB CONC 33 G/DL (32-36); MEAN CORPUSCULAR VOLUME 90 FL (80-99); MEAN PLATELET VOLUME 11.3 FL (7.4-10.4); MONOCYTES # (AUTO) 0.5 X 10^3 (0.0-1.0); MONOCYTES % (AUTO) 7 % (0-12); NEUTROPHILS # (AUTO) 4.3 X 10^3 (1.8-7.8); NEUTROPHILS % (AUTO) 60 % (42-75); PLATELET COUNT 229 10^3/uL (130-400); RED CELL DISTRIBUTION WIDTH 13.2 % (10.0-14.5)
== END 2019-12-26 | disposition home or self-care (01) ==
LOC: ONC 11:35
PROVIDERS: ATTEND Internal Medicine Hematology & Oncology
DX: D50.9 Iron deficiency anemia, unspecified (principal); I26.99 Other pulmonary embolism without acute cor pulmonale; I82.591 Chronic embolism and thrombosis of other specified deep vein of right lower extremity; E03.9 Hypothyroidism, unspecified; J45.909 Unspecified asthma, uncomplicated; I10 Essential (primary) hypertension; G47.33 Obstructive sleep apnea (adult) (pediatric); E66.01 Morbid (severe) obesity due to excess calories; Z68.42 Body mass index [BMI] 45.0-49.9, adult; Z79.01 Long term (current) use of anticoagulants
CPT/HCPCS: 80053; 82728; 85025; 99213

== ENCOUNTER → 2019-12-16 | Outpatient (CLI) | payer MEDICARE | LOC: ONC 11:40 | PROVIDERS: ATTEND Family Medicine | DX: E03.9 Hypothyroidism, unspecified (principal); R73.03 Prediabetes | CPT/HCPCS: 36415; 83036; 84443 ==

== ENCOUNTER 2020-02-25 13:18 | Outpatient (RCR) | payer MEDICARE ==
[2020-01-22 11:46] LABS: BASOPHILS % (AUTO) 0 % (0-10); EOSINOPHILS # (AUTO) 0.3 10^3/uL (0.0-0.3); EOSINOPHILS % (AUTO) 3 % (0-10); HEMATOCRIT 47 % (35-52); HEMOGLOBIN 15.4 G/DL (11.5-16.0); LYMPHOCYTES # (AUTO) 2.5 X 10^3 (1.0-4.0); LYMPHOCYTES % (AUTO) 28 % (12-44); MEAN CORPUSCULAR HEMOGLOBIN 29 PG (25-34); MEAN CORPUSCULAR HGB CONC 33 G/DL (32-36); MEAN CORPUSCULAR VOLUME 90 FL (80-99); MEAN PLATELET VOLUME 11.4 FL (7.4-10.4); MONOCYTES # (AUTO) 0.6 X 10^3 (0.0-1.0); MONOCYTES % (AUTO) 7 % (0-12); NEUTROPHILS # (AUTO) 5.5 X 10^3 (1.8-7.8); NEUTROPHILS % (AUTO) 62 % (42-75); PLATELET COUNT 233 10^3/uL (130-400); RED CELL DISTRIBUTION WIDTH 13.2 % (10.0-14.5)
[2020-02-24 11:14] LABS: BASOPHILS % (AUTO) 0 % (0-10); EOSINOPHILS # (AUTO) 0.3 10^3/uL (0.0-0.3); EOSINOPHILS % (AUTO) 4 % (0-10); HEMATOCRIT 46 % (35-52); HEMOGLOBIN 14.7 G/DL (11.5-16.0); LYMPHOCYTES # (AUTO) 1.9 X 10^3 (1.0-4.0); LYMPHOCYTES % (AUTO) 23 % (12-44); MEAN CORPUSCULAR HEMOGLOBIN 29 PG (25-34); MEAN CORPUSCULAR HGB CONC 32 G/DL (32-36); MEAN CORPUSCULAR VOLUME 89 FL (80-99); MEAN PLATELET VOLUME 11.4 FL (7.4-10.4); MONOCYTES # (AUTO) 0.5 X 10^3 (0.0-1.0); MONOCYTES % (AUTO) 6 % (0-12); NEUTROPHILS # (AUTO) 5.6 X 10^3 (1.8-7.8); NEUTROPHILS % (AUTO) 67 % (42-75); PLATELET COUNT 226 10^3/uL (130-400); RED CELL DISTRIBUTION WIDTH 13.5 % (10.0-14.5); WHITE BLOOD COUNT 8.3 10^3/uL (4.3-11.0)
[2020-02-24 11:36] LABS: ALANINE AMINOTRANSFERASE 18 U/L (0-55); ALBUMIN 4.1 GM/DL (3.2-4.5); ALKALINE PHOSPHATASE 61 U/L (40-136); BILIRUBIN,TOTAL 0.7 MG/DL (0.1-1.0); BUN/CREATININE RATIO 12; CALCIUM 9.6 MG/DL (8.5-10.1); CARBON DIOXIDE 29 MMOL/L (21-32); CHLORIDE 102 MMOL/L (98-107); CREATININE SERUM 0.85 MG/DL (0.60-1.30); GFR ESTIMATED > 60; GLUCOSE 109 MG/DL (70-105); SODIUM 140 MMOL/L (135-145); TOTAL PROTEIN 7.6 GM/DL (6.4-8.2)
== END 2020-04-21 | disposition home or self-care (01) ==
LOC: ONC 13:18
PROVIDERS: ATTEND Internal Medicine Hematology & Oncology
DX: D50.9 Iron deficiency anemia, unspecified (principal); I26.99 Other pulmonary embolism without acute cor pulmonale; I82.591 Chronic embolism and thrombosis of other specified deep vein of right lower extremity; E03.9 Hypothyroidism, unspecified; J45.909 Unspecified asthma, uncomplicated; I10 Essential (primary) hypertension; G47.33 Obstructive sleep apnea (adult) (pediatric); E66.01 Morbid (severe) obesity due to excess calories; Z68.42 Body mass index [BMI] 45.0-49.9, adult; Z79.01 Long term (current) use of anticoagulants
CPT/HCPCS: 80053; 82728; 85025; 99213

== ENCOUNTER 2020-06-11 11:38 | Outpatient (RCR) | payer MEDICARE ==
[~2020-06-11 11:38] MED LIST changes: -MONT10TA26 PO; +MONT10TA97 PO; -RISP1TAB3 PO; +RISP1TAB93 PO
[2020-06-11 11:49] LABS: BASOPHILS % (AUTO) 1 % (0-10); EOSINOPHILS # (AUTO) 0.2 10^3/uL (0.0-0.3); EOSINOPHILS % (AUTO) 3 % (0-10); HEMATOCRIT 44 % (35-52); HEMOGLOBIN 14.2 g/dL (11.5-16.0); LYMPHOCYTES # (AUTO) 2.1 10^3/uL (1.0-4.0); LYMPHOCYTES % (AUTO) 29 % (12-44); MEAN CORPUSCULAR HEMOGLOBIN 29 pg (25-34); MEAN CORPUSCULAR HGB CONC 32 g/dL (32-36); MEAN CORPUSCULAR VOLUME 91 fL (80-99); MEAN PLATELET VOLUME 10.4 fL (9.0-12.2); MONOCYTES # (AUTO) 0.6 10^3/uL (0.0-1.0); MONOCYTES % (AUTO) 8 % (0-12); NEUTROPHILS # (AUTO) 4.3 10^3/uL (1.8-7.8); NEUTROPHILS % (AUTO) 60 % (42-75); PLATELET COUNT 221 10^3/uL (130-400); WHITE BLOOD COUNT 7.1 10^3/uL (4.3-11.0)
[2020-06-11 12:09] LABS: ALANINE AMINOTRANSFERASE 21 U/L (0-55); ALKALINE PHOSPHATASE 52 U/L (40-136); BILIRUBIN,TOTAL 0.9 MG/DL (0.1-1.0); BUN/CREATININE RATIO 16; CALCIUM 9.3 MG/DL (8.5-10.1); CARBON DIOXIDE 27 MMOL/L (21-32); CHLORIDE 101 MMOL/L (98-107); CREATININE SERUM 0.77 MG/DL (0.60-1.30); GFR ESTIMATED > 60; GLUCOSE 128 MG/DL (70-105); POTASSIUM 3.8 MMOL/L (3.6-5.0); SODIUM 139 MMOL/L (135-145); TOTAL PROTEIN 7.4 GM/DL (6.4-8.2)
== END 2020-09-02 12:33 | disposition home or self-care (01) ==
LOC: ONC 11:38
PROVIDERS: ATTEND Internal Medicine Hematology & Oncology
DX: D50.9 Iron deficiency anemia, unspecified (principal); I26.99 Other pulmonary embolism without acute cor pulmonale; I82.591 Chronic embolism and thrombosis of other specified deep vein of right lower extremity; E03.9 Hypothyroidism, unspecified; J45.909 Unspecified asthma, uncomplicated; I10 Essential (primary) hypertension; G47.33 Obstructive sleep apnea (adult) (pediatric); E66.01 Morbid (severe) obesity due to excess calories; Z68.42 Body mass index [BMI] 45.0-49.9, adult; Z79.01 Long term (current) use of anticoagulants
CPT/HCPCS: 80053; 82728; 85025

== ENCOUNTER 2020-09-29 09:56 | Outpatient (RCR) | payer MEDICARE ==
[2020-09-22 13:23] LABS: BASOPHILS # (AUTO) 0.1 10^3/uL (0.0-0.1); BASOPHILS % (AUTO) 1 % (0-10); EOSINOPHILS # (AUTO) 0.5 10^3/uL (0.0-0.3); EOSINOPHILS % (AUTO) 4 % (0-10); HEMATOCRIT 40 % (35-52); HEMOGLOBIN 12.3 g/dL (11.5-16.0); LYMPHOCYTES # (AUTO) 2.3 10^3/uL (1.0-4.0); LYMPHOCYTES % (AUTO) 23 % (12-44); MEAN CORPUSCULAR HEMOGLOBIN 27 pg (25-34); MEAN CORPUSCULAR HGB CONC 31 g/dL (32-36); MEAN CORPUSCULAR VOLUME 86 fL (80-99); MEAN PLATELET VOLUME 11.1 fL (9.0-12.2); MONOCYTES # (AUTO) 0.7 10^3/uL (0.0-1.0); MONOCYTES % (AUTO) 7 % (0-12); NEUTROPHILS # (AUTO) 6.8 10^3/uL (1.8-7.8); NEUTROPHILS % (AUTO) 65 % (42-75); PLATELET COUNT 333 10^3/uL (130-400); WHITE BLOOD COUNT 10.4 10^3/uL (4.3-11.0)
[2020-09-22 13:31] LABS: CHLORIDE 104 MMOL/L (98-107); POTASSIUM 3.8 MMOL/L (3.6-5.0); SODIUM 137 MMOL/L (135-145)
[2020-09-22 13:32] LABS: CALCIUM 9.4 MG/DL (8.5-10.1)
[2020-09-22 13:33] LABS: GLUCOSE 141 MG/DL (70-105); TOTAL PROTEIN 7.8 GM/DL (6.4-8.2)
[2020-09-22 13:34] LABS: CARBON DIOXIDE 27 MMOL/L (21-32)
[2020-09-22 13:35] LABS: BILIRUBIN,TOTAL 0.5 MG/DL (0.1-1.0)
[2020-09-22 13:37] LABS: ALKALINE PHOSPHATASE 70 U/L (40-136); CREATININE SERUM 0.79 MG/DL (0.60-1.30); GFR ESTIMATED > 60
[2020-09-22 13:38] LABS: BUN/CREATININE RATIO 19
[2020-09-22 13:40] LABS: ALANINE AMINOTRANSFERASE 13 U/L (0-55)
[~2020-09-29 09:56] MED LIST changes: -CIPR500T4 PO; +CIPR500T5 PO; +FERRIC CARBOXYMALTOSE (CANCER) 750 MG in NS (IVPB) CANCER CENTER 250 ML IV SCH; +MONT10TA32 PO; -MONT10TA97 PO
== END 2020-12-21 | disposition home or self-care (01) ==
LOC: ONC 09:56
PROVIDERS: ATTEND Internal Medicine Hematology & Oncology
DX: D50.9 Iron deficiency anemia, unspecified (principal); I26.99 Other pulmonary embolism without acute cor pulmonale; I82.591 Chronic embolism and thrombosis of other specified deep vein of right lower extremity; E03.9 Hypothyroidism, unspecified; J45.909 Unspecified asthma, uncomplicated; I10 Essential (primary) hypertension; G47.33 Obstructive sleep apnea (adult) (pediatric); E66.01 Morbid (severe) obesity due to excess calories; Z68.42 Body mass index [BMI] 45.0-49.9, adult; Z79.01 Long term (current) use of anticoagulants
CPT/HCPCS: 80053; 82728; 85025; G0463; 96365; 99213

== ENCOUNTER → 2021-01-26 | Outpatient (CLI) | payer MEDICARE ==
[~2021-01-26] MED LIST changes: -FERRIC CARBOXYMALTOSE (CANCER) 750 MG in NS (IVPB) CANCER CENTER 250 ML IV SCH; +RT-ALBUTEROL SULF 2.5 MG/3 ML PRE-MIX VIAL INH ONE
== END ==
LOC: RT 13:00
PROVIDERS: ATTEND Nurse Practitioner Family
DX: R06.00 Dyspnea, unspecified (principal)
CPT/HCPCS: 94060; 94726; 94729

== ENCOUNTER 2021-01-29 14:55 | Outpatient (RCR) | payer MEDICARE ==
[2021-01-19 13:57] LABS: BASOPHILS % (AUTO) 0 % (0-10); EOSINOPHILS # (AUTO) 0.3 10^3/uL (0.0-0.3); EOSINOPHILS % (AUTO) 4 % (0-10); HEMATOCRIT 30 % (35-52); HEMOGLOBIN 8.6 g/dL (11.5-16.0); LYMPHOCYTES # (AUTO) 1.5 10^3/uL (1.0-4.0); LYMPHOCYTES % (AUTO) 18 % (12-44); MEAN CORPUSCULAR HEMOGLOBIN 23 pg (25-34); MEAN CORPUSCULAR HGB CONC 29 g/dL (32-36); MEAN CORPUSCULAR VOLUME 80 fL (80-99); MEAN PLATELET VOLUME 11.3 fL (9.0-12.2); MONOCYTES # (AUTO) 0.6 10^3/uL (0.0-1.0); MONOCYTES % (AUTO) 8 % (0-12); NEUTROPHILS # (AUTO) 5.7 10^3/uL (1.8-7.8); NEUTROPHILS % (AUTO) 70 % (42-75); PLATELET COUNT 286 10^3/uL (130-400); WHITE BLOOD COUNT 8.2 10^3/uL (4.3-11.0)
[2021-01-19 14:22] LABS: ALANINE AMINOTRANSFERASE 12 U/L (0-55); ALBUMIN 3.8 GM/DL (3.2-4.5); ALKALINE PHOSPHATASE 57 U/L (40-136); BILIRUBIN,TOTAL 0.4 MG/DL (0.1-1.0); BUN/CREATININE RATIO 17; CARBON DIOXIDE 29 MMOL/L (21-32); CHLORIDE 101 MMOL/L (98-107); CREATININE SERUM 0.89 MG/DL (0.60-1.30); GFR ESTIMATED > 60; GLUCOSE 137 MG/DL (70-105); POTASSIUM 3.2 MMOL/L (3.6-5.0); SODIUM 138 MMOL/L (135-145); TOTAL PROTEIN 7.7 GM/DL (6.4-8.2)
[~2021-01-29 14:55] MED LIST changes: +FERRIC CARBOXYMALTOSE (CANCER) 750 MG in NS (IVPB) CANCER CENTER 250 ML IV SCH; -RT-ALBUTEROL SULF 2.5 MG/3 ML PRE-MIX VIAL INH ONE
== END 2021-04-19 | disposition home or self-care (01) ==
LOC: ONC 14:55
PROVIDERS: ATTEND Internal Medicine Hematology & Oncology
DX: D50.9 Iron deficiency anemia, unspecified (principal); J45.909 Unspecified asthma, uncomplicated; G47.33 Obstructive sleep apnea (adult) (pediatric); E66.01 Morbid (severe) obesity due to excess calories; Z68.42 Body mass index [BMI] 45.0-49.9, adult; Z79.01 Long term (current) use of anticoagulants; Z86.718 Personal history of other venous thrombosis and embolism; Z86.711 Personal history of pulmonary embolism; Z79.890 Hormone replacement therapy; Z79.899 Other long term (current) drug therapy
CPT/HCPCS: 80053; 82728; 85025; G0463; 96365; 96374; 99213

== ENCOUNTER → 2021-08-10 | Outpatient (RCR) | payer MEDICARE ==
[2021-05-12 10:19] LABS: BASOPHILS # (AUTO) 0.1 10^3/uL (0.0-0.1); BASOPHILS % (AUTO) 1 % (0-10); EOSINOPHILS # (AUTO) 0.5 10^3/uL (0.0-0.3); EOSINOPHILS % (AUTO) 6 % (0-10); HEMATOCRIT 30 % (35-52); LYMPHOCYTES # (AUTO) 1.8 10^3/uL (1.0-4.0); LYMPHOCYTES % (AUTO) 20 % (12-44); MEAN CORPUSCULAR HEMOGLOBIN 20 pg (25-34); MEAN CORPUSCULAR HGB CONC 27 g/dL (32-36); MEAN CORPUSCULAR VOLUME 75 fL (80-99); MEAN PLATELET VOLUME 10.9 fL (9.0-12.2); MONOCYTES # (AUTO) 0.7 10^3/uL (0.0-1.0); MONOCYTES % (AUTO) 8 % (0-12); NEUTROPHILS # (AUTO) 5.8 10^3/uL (1.8-7.8); NEUTROPHILS % (AUTO) 65 % (42-75); PLATELET COUNT 324 10^3/uL (130-400); WHITE BLOOD COUNT 8.9 10^3/uL (4.3-11.0)
[2021-05-12 10:47] LABS: ALBUMIN 3.7 GM/DL (3.2-4.5); BILIRUBIN,TOTAL 0.7 MG/DL (0.1-1.0); CALCIUM 9.3 MG/DL (8.5-10.1); CREATININE SERUM 0.85 MG/DL (0.60-1.30); POTASSIUM 3.5 MMOL/L (3.6-5.0)
[~2021-08-10] MED LIST changes: +MONT-40 PO; -MONT10TA32 PO; +POTA-179 PO; -POTA20TA15 PO
== END | disposition home or self-care (01) ==
LOC: ONC 05-12 10:07
PROVIDERS: ATTEND Internal Medicine Hematology & Oncology
DX: D50.9 Iron deficiency anemia, unspecified (principal); J45.909 Unspecified asthma, uncomplicated; G47.33 Obstructive sleep apnea (adult) (pediatric); B88.8 Other specified infestations; E66.01 Morbid (severe) obesity due to excess calories; Z68.42 Body mass index [BMI] 45.0-49.9, adult; Z79.01 Long term (current) use of anticoagulants; Z86.718 Personal history of other venous thrombosis and embolism; Z86.711 Personal history of pulmonary embolism
CPT/HCPCS: 80053; 82728; 85025; 96365; G0463

== ENCOUNTER 2021-08-18 10:04 | Outpatient (RCR) | payer MEDICARE ==
[~2021-08-18 10:04] MED LIST changes: -FERRIC CARBOXYMALTOSE (CANCER) 750 MG in NS (IVPB) CANCER CENTER 250 ML IV SCH
[2021-08-18] MEDS ORDERED: FERRIC CARBOXYMALTOSE (CANCER) 750 MG in NS (IVPB) CANCER CENTER 250 ML IV SCH (10:15)
== END 2021-08-27 ==
LOC: ONC 10:04
PROVIDERS: ATTEND Internal Medicine Hematology & Oncology
DX: Z51.11 Encounter for antineoplastic chemotherapy (principal); D50.9 Iron deficiency anemia, unspecified; J45.909 Unspecified asthma, uncomplicated; G47.33 Obstructive sleep apnea (adult) (pediatric); B88.8 Other specified infestations; E66.01 Morbid (severe) obesity due to excess calories; Z68.42 Body mass index [BMI] 45.0-49.9, adult; Z79.01 Long term (current) use of anticoagulants; Z86.718 Personal history of other venous thrombosis and embolism; Z86.711 Personal history of pulmonary embolism
CPT/HCPCS: 96365

== ENCOUNTER 2021-10-05 09:22 | Outpatient (RCR) | payer MEDICARE ==
[2021-10-05 09:45] LABS: HEMATOCRIT 44 % (35-52); MEAN CORPUSCULAR VOLUME 85 fL (80-99); MEAN PLATELET VOLUME 11.2 fL (9.0-12.2)
[2021-10-05 09:46] LABS: BASOPHILS # (AUTO) 0.1 10^3/uL (0.0-0.1); BASOPHILS % (AUTO) 1 % (0-10); EOSINOPHILS # (AUTO) 0.2 10^3/uL (0.0-0.3); EOSINOPHILS % (AUTO) 3 % (0-10); HEMOGLOBIN 13.2 g/dL (11.5-16.0); LYMPHOCYTES # (AUTO) 1.5 10^3/uL (1.0-4.0); LYMPHOCYTES % (AUTO) 27 % (12-44); MEAN CORPUSCULAR HEMOGLOBIN 25 pg (25-34); MEAN CORPUSCULAR HGB CONC 30 g/dL (32-36); MONOCYTES # (AUTO) 0.4 10^3/uL (0.0-1.0); MONOCYTES % (AUTO) 7 % (0-12); NEUTROPHILS # (AUTO) 3.4 10^3/uL (1.8-7.8); NEUTROPHILS % (AUTO) 62 % (42-75); PLATELET COUNT 272 10^3/uL (130-400); WHITE BLOOD COUNT 5.5 10^3/uL (4.3-11.0)
[2021-10-05 10:10] LABS: BILIRUBIN,TOTAL 0.6 MG/DL (0.1-1.0); CALCIUM 9.6 MG/DL (8.5-10.1); CREATININE SERUM 0.92 MG/DL (0.60-1.30); POTASSIUM 3.7 MMOL/L (3.6-5.0); TOTAL PROTEIN 8.7 GM/DL (6.4-8.2)
== END 2021-10-25 | disposition home or self-care (01) ==
LOC: ONC 09:22
PROVIDERS: ATTEND Internal Medicine Hematology & Oncology
DX: K90.9 Intestinal malabsorption, unspecified (principal)
CPT/HCPCS: 80053; 82728; 85025; G0463; 36415; 99213

== ENCOUNTER 2022-02-10 09:16 | Outpatient (CLI) | payer MEDICARE ==
[~2022-02-10] VITALS: Ht 157.5 cm; Wt 101.8 kg
[2022-02-10] MEDS ORDERED: NS IV 500 ML 500 ML IV SCH (10:00)
[2022-02-10 11:03] VITALS: BP 117/72
[2022-02-10 11:13] VITALS: BP 117/72
[2022-02-10 11:18] VITALS: BP 110/53
[2022-02-10 13:08] VITALS: BP 108/55
== END 2022-02-10 13:32 ==
LOC: SDC 09:16
PROVIDERS: ATTEND Internal Medicine Hematology & Oncology
DX: D50.9 Iron deficiency anemia, unspecified (principal)
CPT/HCPCS: 36430; 86850; 86900; 86901; 86920; P9016

== ENCOUNTER 2022-02-21 13:10 | Outpatient (RCR) | payer MEDICARE ==
[2022-02-08 13:50] LABS: MONOCYTES # (AUTO) 0.7 10^3/uL (0.0-1.0); PLATELET COUNT 319 10^3/uL (130-400)
[2022-02-08 13:52] LABS: BASOPHILS # (AUTO) 0.1 10^3/uL (0.0-0.1); BASOPHILS % (AUTO) 1 % (0-10); EOSINOPHILS # (AUTO) 0.1 10^3/uL (0.0-0.3); EOSINOPHILS % (AUTO) 1 % (0-10); HEMATOCRIT 23 % (35-52); LYMPHOCYTES # (AUTO) 1.3 10^3/uL (1.0-4.0); LYMPHOCYTES % (AUTO) 15 % (12-44); MEAN CORPUSCULAR HEMOGLOBIN 15 pg (25-34); MEAN CORPUSCULAR HGB CONC 25 g/dL (32-36); MEAN CORPUSCULAR VOLUME 62 fL (80-99); MEAN PLATELET VOLUME 10.8 fL (9.0-12.2); MONOCYTES % (AUTO) 9 % (0-12); NEUTROPHILS # (AUTO) 6.3 10^3/uL (1.8-7.8); NEUTROPHILS % (AUTO) 74 % (42-75); WHITE BLOOD COUNT 8.5 10^3/uL (4.3-11.0)
[2022-02-08 13:55] LABS: HEMOGLOBIN 5.7 g/dL (11.5-16.0)
[2022-02-14 13:19] LABS: BASOPHILS # (AUTO) 0.1 10^3/uL (0.0-0.1); BASOPHILS % (AUTO) 1 % (0-10); EOSINOPHILS # (AUTO) 0.3 10^3/uL (0.0-0.3); EOSINOPHILS % (AUTO) 3 % (0-10); HEMATOCRIT 27 % (35-52)
[2022-02-14 13:20] LABS: LYMPHOCYTES % (AUTO) 18 % (12-44); MEAN CORPUSCULAR HEMOGLOBIN 17 pg (25-34); MEAN CORPUSCULAR HGB CONC 26 g/dL (32-36); MEAN CORPUSCULAR VOLUME 65 fL (80-99); MONOCYTES # (AUTO) 0.9 10^3/uL (0.0-1.0); MONOCYTES % (AUTO) 9 % (0-12); NEUTROPHILS # (AUTO) 7.4 10^3/uL (1.8-7.8); NEUTROPHILS % (AUTO) 69 % (42-75); PLATELET COUNT 277 10^3/uL (130-400); WHITE BLOOD COUNT 10.7 10^3/uL (4.3-11.0)
[~2022-02-21 13:10] MED LIST changes: +FERRIC CARBOXYMALTOSE INJ 750 MG in NS (IVPB) 250 ML IV SCH
[2022-02-21 14:14] LABS: PLATELET COUNT 266 10^3/uL (130-400)
[2022-02-21 14:16] LABS: BASOPHILS % (AUTO) 0 % (0-10); EOSINOPHILS # (AUTO) 0.3 10^3/uL (0.0-0.3); EOSINOPHILS % (AUTO) 3 % (0-10); HEMATOCRIT 34 % (35-52); HEMOGLOBIN 8.8 g/dL (11.5-16.0); LYMPHOCYTES # (AUTO) 1.6 10^3/uL (1.0-4.0); LYMPHOCYTES % (AUTO) 16 % (12-44); MEAN CORPUSCULAR HEMOGLOBIN 20 pg (25-34); MEAN CORPUSCULAR HGB CONC 26 g/dL (32-36); MEAN CORPUSCULAR VOLUME 77 fL (80-99); MONOCYTES # (AUTO) 0.5 10^3/uL (0.0-1.0); MONOCYTES % (AUTO) 5 % (0-12); NEUTROPHILS # (AUTO) 7.5 10^3/uL (1.8-7.8); NEUTROPHILS % (AUTO) 75 % (42-75); WHITE BLOOD COUNT 10.1 10^3/uL (4.3-11.0)
== END 2022-02-24 | disposition home or self-care (01) ==
LOC: ONC 13:10
PROVIDERS: ATTEND Internal Medicine Hematology & Oncology
DX: D50.9 Iron deficiency anemia, unspecified (principal); J45.909 Unspecified asthma, uncomplicated; E66.01 Morbid (severe) obesity due to excess calories
CPT/HCPCS: 36415; 82728; 85025; 96365

== ENCOUNTER → 2022-04-27 | Outpatient (RCR) | payer MEDICARE ==
[2022-04-20 13:20] LABS: BASOPHILS % (AUTO) 1 % (0-10); EOSINOPHILS # (AUTO) 0.4 10^3/uL (0.0-0.3); EOSINOPHILS % (AUTO) 5 % (0-10); HEMATOCRIT 35 % (35-52); HEMOGLOBIN 10.4 g/dL (11.5-16.0); LYMPHOCYTES # (AUTO) 1.6 10^3/uL (1.0-4.0); LYMPHOCYTES % (AUTO) 19 % (12-44); MEAN CORPUSCULAR HEMOGLOBIN 25 pg (25-34); MEAN CORPUSCULAR HGB CONC 30 g/dL (32-36); MEAN CORPUSCULAR VOLUME 84 fL (80-99); MEAN PLATELET VOLUME 10.8 fL (9.0-12.2); MONOCYTES # (AUTO) 0.5 10^3/uL (0.0-1.0); MONOCYTES % (AUTO) 6 % (0-12); NEUTROPHILS # (AUTO) 5.7 10^3/uL (1.8-7.8); NEUTROPHILS % (AUTO) 69 % (42-75); PLATELET COUNT 326 10^3/uL (130-400); WHITE BLOOD COUNT 8.3 10^3/uL (4.3-11.0)
[2022-04-20 13:50] LABS: ALBUMIN 3.9 GM/DL (3.2-4.5); BILIRUBIN,TOTAL 0.5 MG/DL (0.1-1.0); CALCIUM 9.5 MG/DL (8.5-10.1); CREATININE SERUM 0.79 MG/DL (0.60-1.30); POTASSIUM 3.6 MMOL/L (3.6-5.0); TOTAL PROTEIN 7.7 GM/DL (6.4-8.2)
== END | disposition home or self-care (01) ==
LOC: ONC 04-20 12:47
PROVIDERS: ATTEND Internal Medicine Hematology & Oncology
DX: D50.9 Iron deficiency anemia, unspecified (principal); J45.909 Unspecified asthma, uncomplicated; E66.01 Morbid (severe) obesity due to excess calories
CPT/HCPCS: 80053; 82728; 83540; 83550; 85025; G0463; 36415; 96365; 99213

== ENCOUNTER 2022-05-09 09:58 | Outpatient (RCR) | payer MEDICARE | END 2022-05-27 | disposition home or self-care (01) | LOC: ONC 09:58 | PROVIDERS: ATTEND Internal Medicine Hematology & Oncology | DX: Z45.2 Encounter for adjustment and management of vascular access device (principal); D50.9 Iron deficiency anemia, unspecified; J45.909 Unspecified asthma, uncomplicated; E66.01 Morbid (severe) obesity due to excess calories | CPT/HCPCS: 36415; 96365 ==

== ENCOUNTER 2022-06-22 12:59 | Outpatient (RCR) | payer MEDICARE ==
[~2022-06-22 12:59] MED LIST changes: +ALBU8.5H6 IH; -FERRIC CARBOXYMALTOSE INJ 750 MG in NS (IVPB) 250 ML IV SCH
[2022-06-22 13:47] LABS: BASOPHILS % (AUTO) 0 % (0-10); EOSINOPHILS # (AUTO) 0.4 10^3/uL (0.0-0.3); EOSINOPHILS % (AUTO) 6 % (0-10); HEMATOCRIT 26 % (35-52); HEMOGLOBIN 7.6 g/dL (11.5-16.0); LYMPHOCYTES # (AUTO) 1.1 10^3/uL (1.0-4.0); LYMPHOCYTES % (AUTO) 16 % (12-44); MEAN CORPUSCULAR HEMOGLOBIN 24 pg (25-34); MEAN CORPUSCULAR HGB CONC 29 g/dL (32-36); MEAN CORPUSCULAR VOLUME 82 fL (80-99); MEAN PLATELET VOLUME 11.4 fL (9.0-12.2); MONOCYTES # (AUTO) 0.5 10^3/uL (0.0-1.0); MONOCYTES % (AUTO) 7 % (0-12); NEUTROPHILS # (AUTO) 4.8 10^3/uL (1.8-7.8); NEUTROPHILS % (AUTO) 70 % (42-75); PLATELET COUNT 293 10^3/uL (130-400); WHITE BLOOD COUNT 6.9 10^3/uL (4.3-11.0)
[2022-06-22 13:59] LABS: ALBUMIN 3.9 GM/DL (3.2-4.5)
[2022-06-22 14:01] LABS: CALCIUM 9.1 MG/DL (8.5-10.1)
[2022-06-22 14:02] LABS: TOTAL PROTEIN 7.8 GM/DL (6.4-8.2)
[2022-06-22 14:04] LABS: BILIRUBIN,TOTAL 0.8 MG/DL (0.1-1.0)
[2022-06-22 14:06] LABS: CREATININE SERUM 0.82 MG/DL (0.60-1.30)
[2022-06-24] MEDS ORDERED: FERRIC CARBOXYMALTOSE INJ 750 MG in NS (IVPB) 250 ML IV SCH (08:00)
== END 2022-06-27 | disposition home or self-care (01) ==
LOC: ONC 12:59
PROVIDERS: ATTEND Internal Medicine Hematology & Oncology
DX: D50.9 Iron deficiency anemia, unspecified (principal); J45.909 Unspecified asthma, uncomplicated; E66.01 Morbid (severe) obesity due to excess calories; K92.2 Gastrointestinal hemorrhage, unspecified
CPT/HCPCS: 80053; 82728; 83540; 83550; 85025; G0463; 36415; 99213

== ENCOUNTER 2022-07-11 11:32 | Outpatient (RCR) | payer MEDICARE ==
[2022-07-11 11:19] LABS: BASOPHILS % (AUTO) 1 % (0-10); HEMATOCRIT 31 % (35-52)
[2022-07-11 11:21] LABS: EOSINOPHILS # (AUTO) 0.4 10^3/uL (0.0-0.3); EOSINOPHILS % (AUTO) 5 % (0-10); HEMOGLOBIN 8.6 g/dL (11.5-16.0); LYMPHOCYTES # (AUTO) 1.2 10^3/uL (1.0-4.0); LYMPHOCYTES % (AUTO) 15 % (12-44); MEAN CORPUSCULAR HEMOGLOBIN 25 pg (25-34); MEAN CORPUSCULAR HGB CONC 28 g/dL (32-36); MEAN CORPUSCULAR VOLUME 89 fL (80-99); MONOCYTES # (AUTO) 0.4 10^3/uL (0.0-1.0); MONOCYTES % (AUTO) 5 % (0-12); NEUTROPHILS # (AUTO) 6.1 10^3/uL (1.8-7.8); NEUTROPHILS % (AUTO) 75 % (42-75); PLATELET COUNT 176 10^3/uL (130-400); WHITE BLOOD COUNT 8.2 10^3/uL (4.3-11.0)
[~2022-07-11 11:32] MED LIST changes: +FERRIC CARBOXYMALTOSE INJ 750 MG in NS (IVPB) 250 ML IV SCH
[2022-07-11 11:37] LABS: SMEAR SCAN COMMENT YES
== END 2022-07-27 | disposition home or self-care (01) ==
LOC: ONC 11:32
PROVIDERS: ATTEND Internal Medicine Hematology & Oncology
DX: D50.9 Iron deficiency anemia, unspecified (principal); J45.909 Unspecified asthma, uncomplicated; E66.01 Morbid (severe) obesity due to excess calories; K92.2 Gastrointestinal hemorrhage, unspecified
CPT/HCPCS: 36415; 85025; 96365

== ENCOUNTER 2022-07-20 10:44 | Outpatient (CLI) | payer MEDICARE ==
[~2022-07-20] VITALS: Ht 157.5 cm; Wt 95.0 kg
[~2022-07-20 10:44] MED LIST changes: -FERRIC CARBOXYMALTOSE INJ 750 MG in NS (IVPB) 250 ML IV SCH
== END 2022-07-20 11:34 | disposition home or self-care (01) ==
LOC: PREOP 10:44
PROVIDERS: ATTEND Surgery
DX: Z01.818 Encounter for other preprocedural examination (principal)

== ENCOUNTER 2022-08-03 10:40 | Outpatient (RCR) | payer MEDICARE ==
[2022-08-03 11:02] LABS: BASOPHILS # (AUTO) 0.1 10^3/uL (0.0-0.1); BASOPHILS % (AUTO) 1 % (0-10); EOSINOPHILS # (AUTO) 0.6 10^3/uL (0.0-0.3); EOSINOPHILS % (AUTO) 8 % (0-10); HEMATOCRIT 40 % (35-52); HEMOGLOBIN 11.4 g/dL (11.5-16.0); LYMPHOCYTES # (AUTO) 1.4 10^3/uL (1.0-4.0); LYMPHOCYTES % (AUTO) 21 % (12-44); MEAN CORPUSCULAR HEMOGLOBIN 26 pg (25-34); MEAN CORPUSCULAR HGB CONC 29 g/dL (32-36); MEAN CORPUSCULAR VOLUME 89 fL (80-99); MEAN PLATELET VOLUME 11.8 fL (9.0-12.2); MONOCYTES # (AUTO) 0.4 10^3/uL (0.0-1.0); MONOCYTES % (AUTO) 6 % (0-12); NEUTROPHILS # (AUTO) 4.3 10^3/uL (1.8-7.8); NEUTROPHILS % (AUTO) 65 % (42-75); PLATELET COUNT 298 10^3/uL (130-400); WHITE BLOOD COUNT 6.7 10^3/uL (4.3-11.0)
== END 2022-08-27 | disposition home or self-care (01) ==
LOC: ONC 10:40
PROVIDERS: ATTEND Internal Medicine Hematology & Oncology
DX: D50.9 Iron deficiency anemia, unspecified (principal); K92.2 Gastrointestinal hemorrhage, unspecified; J45.909 Unspecified asthma, uncomplicated; E66.01 Morbid (severe) obesity due to excess calories
CPT/HCPCS: 82728; 83540; 83550; 85025; G0463; 36415; 99213

== ENCOUNTER 2022-08-08 11:42 | Day surgery (SDC) | payer MEDICARE ==
[~2022-08-08] VITALS: Ht 157.5 cm; Wt 95.0 kg
[2022-08-08] MEDS ORDERED: LACTATED RINGERS 1,000 ML IV STA (11:49)
[2022-08-08 11:59] VITALS: BP 141/76
[2022-08-08] MEDS ORDERED: HURRICAINE EXT TUBE (BENZOCAINE) XX PRN (12:00)
--- NOTE | 2022-08-08 12:13 | Progress Note-Pre Operative ---
Pre-Operative Progress Note Date of Available H&P: Jul 19, 2022 Date H&P Reviewed: Aug 08, 2022 Time H&P Reviewed: 12:11 History & Physical: H&P Reviewed, Patient Examed, No changes noted Pre-Operative Diagnosis: Anemia, GI bleed DUKE DOWNEY DO Aug 08, 2022 12:13
[2022-08-08] MEDS ORDERED: KETAMINE 50 MG/5 ML SYRINGE ONE (12:52)
[2022-08-08] MEDS ORDERED: PROPOFOL INJECTION 50 ML IV ONE (12:52)
[2022-08-08 13:25] VITALS: BP 96/53
--- NOTE | 2022-08-08 13:29 | Progress Note-Post Operative ---
Post-Operative Progess Note Surgeon (s)/Engine Manager (s) Surgeon DUKE DOWNEY DO Engine Manager: Karey Huffman, MSIII Pre-Operative Diagnosis Anemia, GI bleed Post-Operative Diagnosis Gastritis Hiatal Hernia polyps int hemorrhoids Procedure & Operative Findings Date of Procedure 08/08/22 Procedure Performed/Findings EGD with biopsy Colonoscopy with snare polypectomy PROCEDURE NOTE: After informed consent was obtained, the patient was brought to the endoscopy suite, placed in bed in left lateral decubitus position. She was administered IV sedation by the [employer] OPER[employer] who then monitored vitals the entire time, heart rate, blood pressure and pulse ox and the scope was inserted down the mouth through the esophagus into the stomach. On the way down, noted some mild esophagitis, took a picture, pushed into the stomach, pushed past the antrum into the duodenum. Duodenum looked good. Pulled back and did a biopsy of antrum, then retroflexed the scope, saw a moderate sized hiatal hernia, took a picture of this and then pulled the scope into the GE junction, took another picture of the hiatal hernia and then did a biopsy of the GE junction. Pushed the scope back into the stomach, suctioned all the air out of the stomach. At this point pulled the scope up the esophagus and out the mouth. Switched camera, switched gloves and went down below. Started the colonoscopy and pushed all the way to about 130 cm; pushed into the cecum, took a picture of appendiceal orifice and noted the ileocecal valve. Then slowly withdrew the scope insufflating to look circumferentially at the sanches starting in the cecum and then just into the ascending colon I saw a polyp. Elected to remove it completely with snare polypectomy. Then continued up to the hep atic flexure, down the transverse colon to the splenic flexure, into the descending colon, down into the sigmoid and then finally into the rectal vault and retroflexed the scope. Took picture of the internal hemorrhoids. The patient tolerated the procedure and she recovered in the endoscopy suite. Recommended for repeat colonoscopy in 5 years Anesthesia Type IV sedation by [employer] Estimated Blood Loss Estimated blood loss (mL): scant Specimens/Packing Specimens Removed antral bx GE jxn bx asc colon polyp DUKE DOWNEY DO Aug 08, 2022 13:29
[2022-08-08 13:30] VITALS: BP 113/62
--- NOTE | 2022-08-08 13:31 | Endoscopy Discharge Instruct ---
Endo Procedure/Findings Findings 1.: Gastritis 2.: Hiatal Hernia 3.: Polyp 4.: Internal Hemorrhoids Discharge Instructions - Activity: You might feel a little sleepy until tomorrow. This is due to the medicine you received to relax you. Until tomorrow, you should: NOT drive a car, operate machinery or power tools. NOT drink any alcoholic beverages. NOT make any important decisions or sign importortant papers. Do not return to work until tomorrow, unless otherwise instructed. Resume previous activities tomorrow. Diet: Start by taking liquids. If you tolerate liquids, advance to solid food. 1.: EGD in 3 years 2.: Colonscopy in 5 years Notify Physician - If you experience excessive bleeding, unusual abdominal pain, fever, or chest pain, contact your doctor immediately. DUKE DOWNEY DO Aug 08, 2022 13:31
--- NOTE | 2022-08-08 13:34 | Anesthesia-General Post-Op ---
MAC Patient Condition Mental Status/LOC: Same as Preop Cardiovascular: Satisfactory Nausea/Vomiting: Absent Respiratory: Satisfactory Pain: Controlled Complications: Absent Post Op Complications Complications None Follow Up Care/Instructions Patient Instructions None needed. Anesthesiology Discharge Order Discharge Order Patient is doing well, no complaints, stable vital signs, no apparent adverse anesthesia problems. No complications reported per nursing. UBALDO AVALOS CRNA Aug 08, 2022 13:34
[2022-08-08 13:35] VITALS: BP 125/67
[2022-08-08 14:10] VITALS: BP 145/80
[2022-08-08 14:40] VITALS: BP 145/80
== END 2022-08-08 14:40 | disposition home or self-care (01) ==
LOC: ENDO 11:42
PROVIDERS: ATTEND Surgery
DX: D12.2 Benign neoplasm of ascending colon (principal); K44.9 Diaphragmatic hernia without obstruction or gangrene; K64.8 Other hemorrhoids; K29.70 Gastritis, unspecified, without bleeding; G47.33 Obstructive sleep apnea (adult) (pediatric); E66.9 Obesity, unspecified; D50.9 Iron deficiency anemia, unspecified; Z68.38 Body mass index [BMI] 38.0-38.9, adult
CPT/HCPCS: 88305

== ENCOUNTER 2022-08-31 13:49 | Outpatient (CLI) | payer MEDICARE ==
[~2022-08-31] VITALS: Wt 95.0 kg
[2022-08-31 14:30] VITALS: BP 146/95
[2022-08-31] MEDS ORDERED: NS IV 500 ML 500 ML IV SCH (14:30)
[2022-08-31 15:28] VITALS: BP 151/72
[2022-08-31 15:43] VITALS: BP 154/68
[2022-08-31 17:32] VITALS: BP 148/80
== END 2022-08-31 18:30 ==
LOC: SDC 13:49
PROVIDERS: ATTEND Internal Medicine Hematology & Oncology
DX: D64.9 Anemia, unspecified (principal)
CPT/HCPCS: 36430; 86850; 86900; 86901; 86920; P9016

== ENCOUNTER 2022-09-09 09:23 | Outpatient (RCR) | payer MEDICARE ==
[2022-08-31 13:10] LABS: BASOPHILS # (AUTO) 0.1 10^3/uL (0.0-0.1); BASOPHILS % (AUTO) 1 % (0-10); EOSINOPHILS # (AUTO) 0.6 10^3/uL (0.0-0.3); EOSINOPHILS % (AUTO) 6 % (0-10); HEMATOCRIT 21 % (35-52); LYMPHOCYTES # (AUTO) 1.4 10^3/uL (1.0-4.0); LYMPHOCYTES % (AUTO) 15 % (12-44); MEAN CORPUSCULAR HEMOGLOBIN 20 pg (25-34); MEAN CORPUSCULAR HGB CONC 26 g/dL (32-36); MEAN CORPUSCULAR VOLUME 74 fL (80-99); MEAN PLATELET VOLUME 11.4 fL (9.0-12.2); MONOCYTES # (AUTO) 0.7 10^3/uL (0.0-1.0); MONOCYTES % (AUTO) 7 % (0-12); NEUTROPHILS # (AUTO) 6.9 10^3/uL (1.8-7.8); NEUTROPHILS % (AUTO) 71 % (42-75); PLATELET COUNT 316 10^3/uL (130-400); WHITE BLOOD COUNT 9.7 10^3/uL (4.3-11.0)
[2022-08-31 13:18] LABS: HEMOGLOBIN 5.6 g/dL (11.5-16.0)
[2022-08-31 13:37] LABS: ALBUMIN 3.6 GM/DL (3.2-4.5); BILIRUBIN,TOTAL 0.5 MG/DL (0.1-1.0); CALCIUM 8.7 MG/DL (8.5-10.1); CREATININE SERUM 0.81 MG/DL (0.60-1.30); POTASSIUM 3.6 MMOL/L (3.6-5.0); TOTAL PROTEIN 7.4 GM/DL (6.4-8.2)
[2022-09-09] MEDS ORDERED: NS IV 500 ML 500 ML IV SCH (09:45)
== END 2022-09-27 | disposition home or self-care (01) ==
LOC: ONC 09:23
PROVIDERS: ATTEND Internal Medicine Hematology & Oncology
DX: D50.9 Iron deficiency anemia, unspecified (principal); J45.909 Unspecified asthma, uncomplicated; E66.01 Morbid (severe) obesity due to excess calories
CPT/HCPCS: 80053; 82728; 83540; 83550; 85025; G0463; 36415; 36430; 86850; 86900; 86901; 86920; 99213

== ENCOUNTER 2022-11-24 13:10 | Outpatient (RCR) | payer MEDICARE ==
[2022-11-02 15:00] LABS: BASOPHILS # (AUTO) 0.1 10^3/uL (0.0-0.1); BASOPHILS % (AUTO) 1 % (0-10); EOSINOPHILS # (AUTO) 0.4 10^3/uL (0.0-0.3); EOSINOPHILS % (AUTO) 8 % (0-10); HEMATOCRIT 29 % (35-52); HEMOGLOBIN 8.2 g/dL (11.5-16.0); LYMPHOCYTES # (AUTO) 0.9 10^3/uL (1.0-4.0); LYMPHOCYTES % (AUTO) 17 % (12-44); MEAN CORPUSCULAR HEMOGLOBIN 22 pg (25-34); MEAN CORPUSCULAR HGB CONC 29 g/dL (32-36); MEAN CORPUSCULAR VOLUME 76 fL (80-99); MONOCYTES # (AUTO) 0.5 10^3/uL (0.0-1.0); MONOCYTES % (AUTO) 9 % (0-12); NEUTROPHILS # (AUTO) 3.5 10^3/uL (1.8-7.8); NEUTROPHILS % (AUTO) 66 % (42-75); PLATELET COUNT 459 10^3/uL (130-400); WHITE BLOOD COUNT 5.3 10^3/uL (4.3-11.0)
[~2022-11-24 13:10] MED LIST changes: +FERRIC CARBOXYMALTOSE INJ 750 MG in NS (IVPB) 250 ML IV SCH
== END 2022-11-25 | disposition home or self-care (01) ==
LOC: ONC 13:10
PROVIDERS: ATTEND Internal Medicine Hematology & Oncology
DX: D50.9 Iron deficiency anemia, unspecified (principal); K92.2 Gastrointestinal hemorrhage, unspecified; E66.01 Morbid (severe) obesity due to excess calories
CPT/HCPCS: 36415; 85025; 96365

== ENCOUNTER 2022-12-28 14:24 | Outpatient (RCR) | payer MEDICARE ==
[~2022-12-28 14:24] MED LIST changes: -FERRIC CARBOXYMALTOSE INJ 750 MG in NS (IVPB) 250 ML IV SCH
[2022-12-28 15:04] LABS: BASOPHILS % (AUTO) 1 % (0-10); EOSINOPHILS # (AUTO) 0.7 10^3/uL (0.0-0.3); EOSINOPHILS % (AUTO) 14 % (0-10); HEMATOCRIT 32 % (35-52); HEMOGLOBIN 9.1 g/dL (11.5-16.0); LYMPHOCYTES % (AUTO) 20 % (12-44); MEAN CORPUSCULAR HEMOGLOBIN 23 pg (25-34); MEAN CORPUSCULAR HGB CONC 29 g/dL (32-36); MEAN CORPUSCULAR VOLUME 78 fL (80-99); MEAN PLATELET VOLUME 10.5 fL (9.0-12.2); MONOCYTES # (AUTO) 0.4 X 10^3 (0.0-1.0); MONOCYTES % (AUTO) 9 % (0-12); NEUTROPHILS # (AUTO) 2.8 X 10^3 (1.8-7.8); NEUTROPHILS % (AUTO) 56 % (42-75); PLATELET COUNT 325 10^3/uL (130-400)
== END 2023-01-25 | disposition home or self-care (01) ==
LOC: ONC 14:24
PROVIDERS: ATTEND Internal Medicine Hematology & Oncology
DX: D50.9 Iron deficiency anemia, unspecified (principal); K92.2 Gastrointestinal hemorrhage, unspecified; E66.01 Morbid (severe) obesity due to excess calories; J45.909 Unspecified asthma, uncomplicated
CPT/HCPCS: 82728; 83540; 83550; 85025

== ENCOUNTER 2023-03-16 07:40 | Outpatient (RCR) | payer MEDICARE ==
[2023-03-08 14:43] LABS: EOSINOPHILS # (AUTO) 0.4 10^3/uL (0.0-0.3)
[2023-03-08 14:45] LABS: BASOPHILS # (AUTO) 0.1 10^3/uL (0.0-0.1); BASOPHILS % (AUTO) 1 % (0-10); EOSINOPHILS % (AUTO) 5 % (0-10); HEMATOCRIT 24 % (35-52); LYMPHOCYTES # (AUTO) 1.5 10^3/uL (1.0-4.0); LYMPHOCYTES % (AUTO) 22 % (12-44); MEAN CORPUSCULAR HEMOGLOBIN 16 pg (25-34); MEAN CORPUSCULAR HGB CONC 25 g/dL (32-36); MEAN CORPUSCULAR VOLUME 62 fL (80-99); MONOCYTES # (AUTO) 0.6 10^3/uL (0.0-1.0); MONOCYTES % (AUTO) 9 % (0-12); NEUTROPHILS # (AUTO) 4.1 10^3/uL (1.8-7.8); NEUTROPHILS % (AUTO) 62 % (42-75); PLATELET COUNT 318 10^3/uL (130-400); WHITE BLOOD COUNT 6.5 10^3/uL (4.3-11.0)
[2023-03-09] MEDS: NORMAL SALINE IV SCH (11:26)
[2023-03-09] MEDS: FERRIC CARBOXYMALTOSE IV SCH (11:26)
[~2023-03-16] VITALS: Ht 157.5 cm; Wt 95.0 kg
[~2023-03-16 07:40] MED LIST changes: +NS IV 500 ML 500 ML IV ONE
[2023-03-16] MEDS ORDERED: NS IV 500 ML (CANCER CENTER) IV SCH (08:15)
[2023-03-16 13:30] VITALS: BP 140/80
[2023-03-16] MEDS: FERRIC CARBOXYMALTOSE IV SCH (13:36)
[2023-03-16] MEDS: NORMAL SALINE IV SCH (13:36)
== END 2023-03-27 | disposition home or self-care (01) ==
LOC: ONC 07:40
PROVIDERS: ATTEND Internal Medicine Hematology & Oncology
DX: Z51.11 Encounter for antineoplastic chemotherapy (principal); C80.1 Malignant (primary) neoplasm, unspecified; D50.9 Iron deficiency anemia, unspecified; K92.2 Gastrointestinal hemorrhage, unspecified; E66.01 Morbid (severe) obesity due to excess calories; J45.909 Unspecified asthma, uncomplicated
CPT/HCPCS: 36415; 36430; 82728; 83540; 83550; 85025; 86850; 86900; 86901; 86920; 96365

== ENCOUNTER 2023-06-15 08:27 | Outpatient (RCR) | payer MEDICARE ==
[2023-06-08] MEDS: FERRIC CARBOXYMALTOSE IV SCH (14:18)
[2023-06-08] MEDS: NORMAL SALINE IV SCH (14:18)
[2023-06-08 14:25] VITALS: BP 125/77
[~2023-06-15] VITALS: Ht 157.5 cm; Wt 95.0 kg
[~2023-06-15 08:27] MED LIST changes: -CELE-63 PO; +CELE-91 PO; +NS IV 500 ML (CANCER CENTER) IV SCH; -NS IV 500 ML 500 ML IV ONE
[2023-06-15 14:10] VITALS: BP 132/81
[2023-06-15] MEDS: NORMAL SALINE IV SCH (14:10)
[2023-06-15] MEDS: FERRIC CARBOXYMALTOSE IV SCH (14:10)
== END 2023-06-27 | disposition home or self-care (01) ==
LOC: ONC 08:27
PROVIDERS: ATTEND Internal Medicine Hematology & Oncology
DX: Z51.11 Encounter for antineoplastic chemotherapy (principal); C80.1 Malignant (primary) neoplasm, unspecified; D50.9 Iron deficiency anemia, unspecified; K92.2 Gastrointestinal hemorrhage, unspecified; E66.01 Morbid (severe) obesity due to excess calories; J45.909 Unspecified asthma, uncomplicated
CPT/HCPCS: 36415; 96365

== ENCOUNTER 2023-07-19 12:56 | Emergency (ER) | payer MEDICARE ==
[~2023-07-19] VITALS: Ht 157 cm; Wt 104.0 kg
[2023-07-19] VITALS (7 sets, daily range): BP systolic 118–153; BP diastolic 64–78
[~2023-07-19 12:56] MED LIST changes: -NS IV 500 ML (CANCER CENTER) IV SCH
[2023-07-19] MEDS ORDERED: NS IV 500 ML 500 ML IV SCH (13:30)
[2023-07-19] MEDS ORDERED: methylPREDNISolone INJ 125 MG VIAL IVP ONE (13:30)
[2023-07-19] MEDS ORDERED: RT-Ipratropium/Albuterol NEB 3 ML VIAL INH ONE (13:30)
--- NOTE | 2023-07-19 13:35 | ED Respiratory ---
General Chief Complaint: General Problems/Pain Stated Complaint: LOW HEMOGLOBIN 5.9 Nursing Triage Note: PT STATES IRON DEF. ANEMIA, HGB OF 5.9 THIS MORNING, SOB FOR A COUPLE WEEKS, AMBULATED TO RM 10 SOB Source: patient Exam Limitations: no limitations (MERCY NAVARRO APRN) History of Present Illness Date Seen by Provider: Jul 19, 2023 Time Seen by Provider: 13:12 Initial Comments 67-year-old female presents to the ER after being seen at the [facility] walk-in clinic. She was seen at [facility] 3 days ago for a COPD exacerbation, at that time she was found to have a hemoglobin in the 4's. She received 2 units of packed red blood cells at that time. She went to the clinic today for a hospital follow-up appointment. They repeated her CBC and found her hemoglobin to be 5.9. They sent her here for evaluation and blood transfusion. She reports she has had shortness of breath for a while, states it is much worse with exertion, she also reports wheezing and coughing. She reports she has been using her inhalers and they have not provided relief. She was started on prednisone, she is on day 3 of a 5-day course. She complains of generalized fatigue and lightheadedness as well. According to her chart, she last had an EGD and colonoscopy in July 2022. It showed some internal hemorrhoids, no active bleeding. She denies any current black tarry stools, or bloody emesis. Denies any bleeding from her nose or mouth, vagina, or any other locations. She denies fevers and chest pain. She states that her low hemoglobin is from iron deficiency anemia. [facility] Thinks she last saw him approximately 6 weeks ago and had an iron infusion at that time. She is scheduled to see him again on 07/26/2023. (MERCY NAVARRO APRN) Allergies and Home Medications Allergies Coded Allergies: acetaminophen (Verified Allergy, Unknown, 07/08/15) erythromycin base (Verified Allergy, Unknown, 07/08/15) hydrocodone (Verified Allergy, Unknown, 07/08/15) Patient Home Medication List Home Medication List Reviewed: Yes (MERCY NAVARRO APRN) Acetaminophen (Tylenol Extra Strength) 500 Mg Tablet, 1,000 MG PO Q4H PRN for PAIN-MILD, (Reported) Entered as Reported by: ALVINA SORIA on 06/05/19 140 Albuterol Sulfate (Ventolin Hfa) 18 Gm Hfa.aer.ad, 2 PUFF INH Q4H PRN for SHORTNESS OF BREATH, (Reported) Entered as Reported by: ALVINA SORIA on 06/05/19 132 Baclofen (Baclofen) 10 Mg Tablet, 10 MG PO TID PRN for MUSCLE SPASMS, (Reported) Entered as Reported by: ALVINA SORIA on 06/05/19 140 Cariprazine Hydrochloride (Vraylar) 3 Mg Capsule, 3 MG PO DAILY, (Reported) Entered as Reported by: ALVINA SORIA on 06/05/19 132 Chlorthalidone (Chlorthalidone) 25 Mg Tablet, 25 MG PO DAILY, (Reported) Entered as Reported by: ALVINA SORIA on 07/08/15 1257 Clonazepam (Clonazepam) 0.5 Mg Tablet, 0.5 MG PO BID, (Reported) Entered as Reported by: ALVINA SORIA on 06/05/19 132 Fesoterodine Fumarate (Toviaz) 4 Mg Tab.sr.24h, 4 MG PO DAILY, (Reported) Entered as Reported by: ALVINA SORIA on 06/05/19 132 Levothyroxine Sodium (Levothyroxine Sodium) 112 Mcg Tablet, 112 MCG PO DAILY, (Reported) Entered as Reported by: ALVINA SORIA on 07/08/15 1257 Metoprolol Tartrate (Metoprolol Tartrate) 100 Mg Tablet, 100 MG PO BID, (Reported) Entered as Reported by: ALVINA SORIA on 07/08/15 1257 Potassium Chloride (Potassium Chloride) 20 Meq Tab.er.prt, 40 MEQ PO DAILY, (Reported) Entered as Reported by: ALVINA SORIA on 06/05/19 132 Rosuvastatin Calcium (Rosuvastatin Calcium) 10 Mg Tablet, 10 MG PO HS, (Reported) Entered as Reported by: ALVINA SORIA on 06/05/19 132 Umeclidinium Holstein (Incruse Ellipta) 62.5 Mcg Blst.w.dev, 1 PUFF INH DAILY, (Reported) Entered as Reported by: ALVINA SORIA on 06/05/19 1328 Review of Systems Review of Systems Constitutional: see HPI (MERCY NAVARRO APRN) Past Spsxhhm-Ruggrf-Rfdcbi Hx Patient Social History Tobacco Use?: No Substance use?: No Pt feels they are or have been: No (MERCY NAVARRO APRN) Immunizations Up To Date Tetanus Booster (TDap): More than 5yrs PED Vaccines UTD: Yes First/Initial COVID19 Vaccinat: yes Second COVID19 Vaccination Wan: yes Third COVID19 Vaccination Date: yes (MERCY NAVARRO APRN) Seasonal Allergies Seasonal Allergies: No (MERCY NAVARRO APRN) Past Medical History Surgery/Hospitalization HX: IRON DEF. ANEMIA, COPD, ASTHMA, LT KNEE, Surgeries: Yes (DENTAL SURGERY, d&c, LEEP) Section, Gallbladder Respiratory: Yes (COPD, PE) Asthma, Pulmonary Embolism, Sleep Apnea, COPD Currently Using BIPAP: No Cardiac: Yes High Cholesterol, Hypertension Neurological: No Reproductive Disorders: No NURSE COMPANION History: Menopausal Genitourinary: Yes (h/o hematuria) Gastrointestinal: Yes Hemorrhoids, Irritable Bowel Musculoskeletal: Yes (OSTEOARTHRISTIS) Arthritis, Rheumatoid Arthritis Endocrine: Yes Hypothyroidsim HEENT: No (glasses) Loss of Vision: Denies Cancer: No Psychosocial: Yes Sleep Difficulties, Bipolar Integumentary: No Blood Disorders: Yes (low iron anemia) Adverse Reaction/Blood Tranf: No (MERCY NAVARRO APRN) Family Medical History Cardiovascular disease 19 FATHER G8 BROTHER FH: atrial fibrillation 19 MOTHER Heart Disease, Diabetes (MERCY NAVARRO APRN) Physical Exam Vital Signs - First Documented 07/19/23 13:11 Temp 36.8 Pulse 85 Resp 22 B/P (MAP) 117/73 (88) Pulse Ox 98 O2 Delivery Room Air (CHELSIE SIMS MD) Capillary Refill : Less Than 3 Seconds (MERCY NAVARRO APRN) Height: 5'2.00" Weight: 247lbs. 0.0oz. [id number]; 42.00 BMI Method:Stated General Appearance: no apparent distress, other (Pale) Neck: supple, normal inspection Respiratory: no respiratory distress, no accessory muscle use, wheezing Cardiovascular: regular rate, rhythm Extremities: normal range of motion, normal inspection Neurologic/Psychiatric: alert, normal mood/affect Skin: warm/dry, pallor (MELANIEMERCY GODWIN LAUNDRY HOUSEKEEPER) Progress/Results/Core Measures Suspected Sepsis SIRS Temperature: Pulse: 85 Respiratory Rate: 22 Laboratory Tests 07/19/23 13:45: White Blood Count 8.3 Blood Pressure 117 /73 Mean: 88 Laboratory Tests 07/19/23 13:45: Creatinine 0.83, INR Comment 1.1, Platelet Count 272, Total Bilirubin 0.4 [facility] Results/Orders Lab Results Laboratory Tests Test 07/19/23 13:45 07/19/23 19:05 Range/Units White Blood Count 8.3 4.3-11.0 10^3/uL Red Blood Count 2.76 L 3.80-5.11 10^6/uL Hemoglobin 6.0 *L 8.5 #L 11.5-16.0 g/dL Hematocrit 23 L 30 L 35-52 % Mean Corpuscular Volume 82 80-99 fL Mean Corpuscular Hemoglobin 22 L 25-34 pg Mean Corpuscular Hemoglobin Concent 26 L 32-36 g/dL Red Cell Distribution Width 21.8 H 10.0-14.5 % Platelet Count 272 130-400 10^3/uL Mean Platelet Volume 10.4 9.0-12.2 fL Immature Granulocyte % (Auto) 0 % Neutrophils (%) (Auto) 92 H 42-75 % Lymphocytes (%) (Auto) 6 L 12-44 % Monocytes (%) (Auto) 2 0-12 % Eosinophils (%) (Auto) 1 0-10 % Basophils (%) (Auto) 0 0-10 % Neutrophils # (Auto) 7.6 1.8-7.8 10^3/uL Lymphocytes # (Auto) 0.5 L 1.0-4.0 10^3/uL Monocytes # (Auto) 0.2 0.0-1.0 10^3/uL Eosinophils # (Auto) 0.0 0.0-0.3 10^3/uL Basophils # (Auto) 0.0 0.0-0.1 10^3/uL Immature Granulocyte # (Auto) 0.0 0.0-0.1 10^3/uL Neutrophils % (Manual) 93 % Lymphocytes % (Manual) 6 % Monocytes % (Manual) 1 % Hypochromasia MARKED Anisocytosis MODERATE Elliptocytes SLIGHT Prothrombin Time 14.5 12.2-14.7 SEC INR Comment 1.1 0.8-1.4 Activated Partial Thromboplast Time 26 24-35 SEC Sodium Level 138 135-145 MMOL/L Potassium Level 4.8 3.6-5.0 MMOL/L Chloride Level 108 H 98-107 MMOL/L Carbon Dioxide Level 27 21-32 MMOL/L Anion Gap 3 L 5-14 MMOL/L Blood Urea Nitrogen 12 7-18 MG/DL Creatinine 0.83 0.60-1.30 MG/DL Estimat Glomerular Filtration Rate 78 BUN/Creatinine Ratio 14 Glucose Level 191 H 70-105 MG/DL Calcium Level 8.2 L 8.5-10.1 MG/DL Corrected Calcium 8.8 8.5-10.1 MG/DL Total Bilirubin 0.4 0.1-1.0 MG/DL Aspartate Amino Transf (AST/SGOT) 20 5-34 U/L Alanine Aminotransferase (ALT/SGPT) 11 0-55 U/L Alkaline Phosphatase 70 40-136 U/L Total Protein 6.8 6.4-8.2 GM/DL Albumin 3.3 3.2-4.5 GM/DL (CHELSIE SIMS MD) Vital Signs/I&O 07/19/23 07/19/23 07/19/23 07/19/23 13:11 14:21 15:25 15:40 Temp 36.8 36.7 36.9 Pulse 85 65 64 Resp 22 18 18 B/P (MAP) 117/73 (88) 118/64 138/66 Pulse Ox 98 100 O2 Delivery Room Air Room Air Room Air Room Air 07/19/23 07/19/23 07/19/23 07/19/23 17:00 17:15 17:30 18:36 Temp 36.7 36.6 36.5 36.8 Pulse 63 63 66 69 Resp 18 18 18 18 B/P (MAP) 151/75 153/77 147/73 152/78 Pulse Ox 100 100 100 100 O2 Delivery Room Air 07/19/23 19:33 Temp 36.8 Pulse 66 Resp 20 B/P (MAP) 149/75 Pulse Ox 98 O2 Delivery Room Air 07/20/23 00:00 Intake Total 900 ml Balance 900 ml (CHELSIE SIMS Vital Signs/I&O Capillary Refill : Less Than 3 Seconds (MERCY NAVARRO APRN) Blood Pressure Mean: 88 Progress Note : Progress Note Patient seen and evaluated, resting comfortably in bed, no acute distress. Based on exam and symptoms, workup initiated including CBC, CMP, coags, type and screen, chest x-ray, EKG. 2 units of packed red blood cells ordered. Solu- Medrol and DuoNeb ordered. 1552 Labs and chest x-ray reviewed. CBC shows critically low hemoglobin at 6.0, hematocrit low 23. Neutrophil percentage elevated 92. Likely from recent steroid use. CMP shows slightly elevated chloride 108. Glucose elevated 191, also likely from steroid use. Coags normal. Chest x-ray shows heart size and pulmonary vascularity are at the upper limits of normal without overt edema or other acute abnormality. I called and spoke with Dr. Delgado, [facility] hospitalist, regarding patient due to patient receiving 4 blood transfusions within the last few days. She does not think that patient requires admission. 1830 second unit of blood is completed. Patient reports improvement in her shortness of air after receiving blood. Will repeat her H&H in 30 minutes. 1918 H&H reviewed. Hemoglobin up to 8.5. Hematocrit 30. I called and spoke with Dr. Louise, [facility] provider, regarding follow-up for patient. She recommends that patient can follow-up with Dr. Navarro as scheduled next 07/26/2023. She states that if she develops symptoms that she should return for an outpatient blood draw prior to that appointment. I have ordered the outpatient blood draw if needed. The result of this blood draw will be sent to Dr. Navarro and Dr. Issa. Plan of care discussed with patient. All questions sought and answered. Patient is stable for discharge. Discharge instructions and return precautions provided. (MERCY NAVARRO APRN) ECG Initial ECG Impression Date: Jul 19, 2023 Initial ECG Impression Time: 14:20 Initial ECG Rate: 69 Initial ECG Rhythm: Normal Sinus Initial ECG Intervals: Normal Initial ECG Impression: Nonspecific Changes Initial ECG Comparisson: Unchanged (MERCY NAVARRO APRN) Diagnostic Imaging Diagonstic Imaging: Xray Plain Films/CT/US/NM/MRI: chest Comments [facility] [place] NAME: ELFEGO LEWIS [facility] REC#: [id number] PT STATUS: REG ER : 1955 PHYSICIAN: MERCY NAVARRO APRN ADMIT DATE: 07/19/23/ER Signed Date of Exam:07/19/23 CHEST 1 VIEW, AP/PA ONLY Indication: Chest pain Portable AP view of chest is obtained with comparison made to study of 07/08/2015 Heart size and pulmonary vascularity are at the upper limits of normal. No pneumothorax, consolidation or pleural fluid is seen. IMPRESSION: Heart size and pulmonary vascularity are at the upper limits of normal without overt edema or other acute abnormality. Dictated by: Dictated on workstation # [id number] Dict: 07/19/23 1403 Trans: 07/19/23 1621 [facility] [id number] Interpreted by: RAKESH DICKSON MD Electronically signed by: RAKESH DICKSON MD 07/19/23 162 (MERCY NAVARRO APRN) Departure Communication (Admissions) Time/Spoke to Consulting Phy: 15:52 Dr. Delgado, [facility] hospitalist, see progress note. (MERCY NAVARRO APRN) Impression Primary Impression: Anemia Qualified Codes: D50.9 - Iron deficiency anemia, unspecified Disposition: 01 HOME, SELF-CARE Condition: Stable Departure-Patient Inst. Decision time for Depature: 19:24 (MERCY NAVARRO APRN) Referrals: MULU ISSA MD (PCP/Family) Primary Care Physician Patient Instructions: Anemia, Possibly From Low Iron, Adult ED Add. Discharge Instructions: Follow-up with Dr. Navarro next week as scheduled. If you develop shortness of air, fatigue, dizziness, return either this Monday or next Monday to have your labs drawn. You will present to outpatient registration to get this done. These labs will be sent to Dr. Navarro as well as the [facility]. Continue taking your prednisone as prescribed. Continue using your inhalers. If you develop severe symptoms like severe shortness of breath, passing out, severe dizziness, return to the ER. All discharge instructions reviewed with patient and/or family. Voiced understanding. ATTENDING PHYSICIAN NOTE: I was physically present as attending physician in the emergency department dur ing the care of this patient. I discussed this case in brief with Mercy Navarro NP. I did not personally interview or examine this patient. I was not otherwise directly involved in the decision making or delivery of care for this patient. (CHELSIE SIMS MD) Copy Copies To 1: ANAEBL NAVARRO MD Copies To 2: [facility] APRN Jul 19, 2023 13:35 CHELSIE SIMS MD Jul 20, 2023 06:16
[2023-07-19 14:04] LABS: BASOPHILS % (AUTO) 0 % (0-10); EOSINOPHILS % (AUTO) 1 % (0-10); HEMATOCRIT 23 % (35-52); LYMPHOCYTES # (AUTO) 0.5 10^3/uL (1.0-4.0); LYMPHOCYTES % (AUTO) 6 % (12-44); MEAN CORPUSCULAR HEMOGLOBIN 22 pg (25-34); MEAN CORPUSCULAR HGB CONC 26 g/dL (32-36); MEAN CORPUSCULAR VOLUME 82 fL (80-99); MEAN PLATELET VOLUME 10.4 fL (9.0-12.2); MONOCYTES # (AUTO) 0.2 10^3/uL (0.0-1.0); MONOCYTES % (AUTO) 2 % (0-12); NEUTROPHILS # (AUTO) 7.6 10^3/uL (1.8-7.8); NEUTROPHILS % (AUTO) 92 % (42-75); PLATELET COUNT 272 10^3/uL (130-400); WHITE BLOOD COUNT 8.3 10^3/uL (4.3-11.0)
--- NOTE | 2023-07-19 14:08 | Diagnostic Imaging Report ---
Indication: Chest pain Portable AP view of chest is obtained with comparison made to study of 07/08/2015 Heart size and pulmonary vascularity are at the upper limits of normal. No pneumothorax, consolidation or pleural fluid is seen. IMPRESSION: Heart size and pulmonary vascularity are at the upper limits of normal without overt edema or other acute abnormality. Dictated by: Dictated on workstation # [id number]
[2023-07-19 14:14] LABS: ALBUMIN 3.3 GM/DL (3.2-4.5); POTASSIUM 4.8 MMOL/L (3.6-5.0)
[2023-07-19 14:15] LABS: CALCIUM 8.2 MG/DL (8.5-10.1); INR 1.1 (0.8-1.4); PROTHROMBIN TIME PATIENT 14.5 SEC (12.2-14.7)
[2023-07-19 14:16] LABS: TOTAL PROTEIN 6.8 GM/DL (6.4-8.2)
[2023-07-19 14:18] LABS: BILIRUBIN,TOTAL 0.4 MG/DL (0.1-1.0)
[2023-07-19 14:19] LABS: ANISOCYTOSIS MODERATE; ELLIPT/OVALOCYTES SLIGHT; HYPOCHROMASIA MARKED; LYMPHOCYTES % (MANUAL) 6 %; MONOCYTES % (MANUAL) 1 %; NEUTROPHILS % (MANUAL) 93 %
[2023-07-19 14:20] LABS: CREATININE SERUM 0.83 MG/DL (0.60-1.30)
[2023-07-19] MEDS ORDERED: NS (IVPB) 250 ML 250 ML ONE (15:02)
[2023-07-19 19:13] LABS: HEMOGLOBIN 8.5 g/dL (11.5-16.0)
== END 2023-07-19 19:42 | disposition home or self-care (01) ==
LOC: EDUNIT# 12:56 → ER 12:58
DX: D50.9 Iron deficiency anemia, unspecified (principal)
CPT/HCPCS: 71045; 80053; 85007; 85014; 85018; 85027; 85610; 85730; 86850; 86900; 86901; 86920; 93005; 93041; 94640; 99284; P9016; 36415